=== PATIENT | male | born 1985 | race Caucasian/White ===

== ENCOUNTER 2022-12-04 18:58 | Emergency (ER) | payer MEDICAID, SELFPAY ==
[2022-12-04 19:03] VITALS: BP 160/98; PULSE 67; RESP 18; TEMP 36.4; O2SAT 95; BMI 26.7
--- NOTE | 2022-12-04 19:14 | XRR_ITS ---
PROCEDURE INFORMATION: Exam: XR Chest Exam date and time: 12/04/2022 7:23 PM Age: 37 years old Clinical indication: Pain; Chest pressure; Additional info: Chest pain TECHNIQUE: Imaging protocol: Radiologic exam of the chest. Views: 1 view. COMPARISON: No relevant prior studies available. FINDINGS: Tubes, catheters and devices: EKG monitoring leads overlie the thoracic wall. Lungs: There is no consolidation. Pleural spaces: No pleural effusion or pneumothorax. Heart/Mediastinum: The heart and mediastinum are normal in size. Bones/joints: Unremarkable. XR/XR chest 1V portable [id number] IMPRESSION: No acute findings.
--- NOTE | 2022-12-04 19:15 | W.ED.CHESTPA ---
HPI - Chest Pain General: Chief Complaint: Chest Pain Stated Complaint: Chest Pains Time Seen by Provider: 12/04/22 19:14 History of Present Illness: 37-year-old male patient comes in with left chest wall pain and discomfort that is aggravated with lying on the left side. Patient reports the pain for the last 3 days. Patient reports no falls or injuries. Patient reports he was evaluated at [facility] 2 days ago and was diagnosed with bronchitis and was refilled on his inhaler and told to follow-up as needed. Patient appears nontoxic. Patient appears in moderate to severe pain. Patient's pain is exacerbated with movement. Associated symptoms: Deny dyspnea, fever(s), nausea or vomiting Review of Systems Const: Denies: fever(s) ENMT: Denies: throat pain Card: Reports: chest pain Resp: Denies: dyspnea GI: Denies: nausea or vomiting : Denies: difficulty urinating Musc: Reports: other (Chest wall tenderness) Skin/Breast: Denies: rash Neuro: Denies: numbness in extremities Physical Exam Const: COMMON NORMALS: alert HENMT: COMMON NORMALS: normocephalic HEAD & SCALP: normocephalic MOUTH: Normal oral and palatal mucosa present Neck/C-Spine: COMMON NORMALS: full ROM Chest: CHEST: Yes tenderness (Left anterior chest wall) Resp: COMMON NORMALS: normal respiratory effort Cardio: COMMON NORMALS: regular rate and regular rhythm RATE: regular rate RHYTHM: regular rhythm GI: COMMON NORMALS: Soft to palpation and non-tender PALPATION: Yes Soft to palpation Back/Pelvis: THORACIC SPINE/UPPER BACK: Yes paraspinal muscle tenderness Extremity: COMMON NORMALS: normal to inspection Neuro: SENSORIUM/ORIENTATION: Yes alert Skin: COMMON NORMALS: turgor normal GENERAL SKIN EXAM: turgor normal Course Vital Signs: Vital signs: Vital Signs Temperature 97.6 F 12/04/22 19:03 Pulse Rate 70 12/04/22 19:19 Respiratory Rate 21 H 12/04/22 19:19 Blood Pressure 139/83 12/04/22 19:19 Pulse Oximetry 99 12/04/22 19:19 Oxygen Delivery Me thod Room Air 12/04/22 19:19 MDM - Chest Pain Medical Decision Making 37-year-old male patient comes in today for complaints of left anterior chest wall pain. Patient reports symptoms for the last 3 days. Patient reports difficulty with sleeping. Patient denies any fever. Patient does report occasional cough. Patient has no chronic medical history but some intermittent asthma. Patient has been seen prior at an outside ER and [facility] and was diagnosed with bronchitis. On exam patient's lungs are clear to auscultation. Heart rates regular. Vital signs are normal. Patient is tender to the left anterior chest wall. Abdomen soft nontender. Differential diagnosis includes but not limited to costochondritis, pleurisy, pneumonia, ACS, PE. Patient's Wells criteria for PE is negative. Lab Data 12/04/22 19:23 12/04/22 19: Radiology Impressions Chest X-Ray 12/04/22: IMPRESSION: No acute findings. Laboratory Results WBC 8.5 10^3/uL (4.0-10.0) 12/04/22 19: RBC 5.48 10^6/uL (4.1-5.3) H 12/04/22 19: Hgb 16.9 g/dL (11.7-16.6) H 12/04/22: Hct 48.2 % (42.0-52.0) 12/04/22 19: MCV 88.0 fl (80-94) 12/04/22: MCH 30.8 pg (28.0-34.0) 12/04/22: MCHC 35.1 g/dL (30.0-36.0) 12/04/22 19: RDW 12.2 % (12.1-15.1) 12/04/22: Plt Count 211 10^3/cmm (130-400) 12/04/22 19: MPV 9.8 fL (7.4-10.4) 12/04/22 19: Neut % (Auto) 62.7 % 12/04/22: Lymph % (Auto) 26.8 % 12/04/22 19: Brown % (Auto) 6.7 % 12/04/22 19: Eos % (Auto) 3.1 % 12/04/22 19: Baso % (Auto) 0.5 % 12/04/22: Neut # (Auto) 5.30 10^3/uL (1.8-7.7) 12/04/22 19:23 Lymph # (Auto) 2.3 10^3/uL (0.8-4.8) 12/04/22 19:23 [place] # (Auto) 0.6 10^3/uL (0.2-0.9) 12/04/22 19:23 Eos # (Auto) 0.3 10^3/uL (0.0-0.8) 12/04/22 19: Baso # (Auto) 0.0 10^3/uL (0.0-0.1) 12/04/22 19: Nucleated RBC % (auto) 0 % 12/04/22 19: Nucleated RBCs # 0.0 /100WBC 12/04/22 19: D-Dimer 0.38 ug/mIFEU (0-0.59) 12/04/22 19:23 EKG Data EKG 1: EKG interpretation date: 12/04/22 EKG interpretation time: 19:31 Interpretation: EKG shows sinus rhythm with a regular rate at [address] elevation or ectopy is noted. No prior exam was available for comparison. Computer generated interpretation: Sinus rhythm, incomplete right bundle branch, minimal voltage criteria for LVH consider normal variant, borderline EKG, unconfirmed report. Discharge Plan Discharge Condition: Stable Coding Level of Care Code ED Steam Turbine Assembler for Chg Kylie
[2022-12-04 19:19] VITALS: BP 139/83; PULSE 70; RESP 21; O2SAT 99
--- NOTE | 2022-12-04 19:28 | ECG_ITS ---
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 Measurements Intervals [place] Rate: 61 P: 42 CT: 155 QRS: 9 QRSD: 117 T: 40 QT: 379 QTc: 385 Interpretive Statements SINUS RHYTHM INCOMPLETE RIGHT BUNDLE BRANCH BLOCK [90+ ms QRS DURATION, TERMINAL R IN V1/V2, 40+ ms S IN I/aVL/V4/V5/V6] MINIMAL VOLTAGE CRITERIA FOR LVH, CONSIDER NORMAL VARIANT [MEETS CRITERIA IN ONE OF: R(aVL), S(V1), R(V5), R(V5/V6)+S(V1)] No previous ECG available for comparison Electronically Signed On 12-05-2022 3:49:40 CDT by Karie Gaines M.D. [id number]
[2022-12-04 19:38] LABS: Basophils % 0.5 %; Eosinophils # 0.3 10^3/uL (0.0-0.8); Eosinophils % 3.1 %; Hematocrit 48.2 % (42.0-52.0); Hemoglobin 16.9 g/dL (11.7-16.6); Lymphocytes # 2.3 10^3/uL (0.8-4.8); Lymphocytes % 26.8 %; Mean Corpuscular HGB Conc 35.1 g/dL (30.0-36.0); Mean Corpuscular Hemoglobin 30.8 pg (28.0-34.0); Mean Platelet Volume 9.8 fL (7.4-10.4); Monocytes # 0.6 10^3/uL (0.2-0.9); Monocytes % 6.7 %; Neutrophils % 62.7 %; Nucleated Red Blood Cells % 0 %; Platelet Count 211 10^3/cmm (130-400); Red Blood Count 5.48 10^6/uL (4.1-5.3); Red Cell Distribution Width 12.2 % (12.1-15.1); White Blood Count 8.5 10^3/uL (4.0-10.0)
[2022-12-04 19:44] LABS: D Dimer 0.38 ug/mIFEU (0-0.59)
[2022-12-04 19:51] VITALS: BP 131/74; PULSE 69; RESP 20; O2SAT 98
[2022-12-04 19:56] LABS: Troponin(5th) Baseline 6 ng/L (0-15)
[2022-12-04 20:05] LABS: Alanine Aminotransferase 37 U/L (0-41); Albumin Level 4.9 g/dL (3.5-5.2); Alkaline Phosphatase 86 U/L (40-130); Anion Gap 17.3 (5-19); Aspartate Amino Transferase 30 U/L (0-40); Blood Urea Nitrogen 11 mg/dL (6-20); Carbon Dioxide 23 mmol/L (22-29); Chloride 104 mmol/L (98-107); Globulin 2.2 g/dL (1.3-4.6); Glucose 83 mg/dL (65-115); Lipase 28 U/L (13-60); NT Pro B Type Natriuretic Pept 42 pg/mL (0-125); Osmolality Calculated 289 mOsm/kg (285-295); Potassium 4.3 mmol/L (3.5-5.1); Sodium 140 mmol/L (136-145); Total Bilirubin 0.3 mg/dL (0.15-1.2); Total Protein 7.1 g/dL (6.6-8.7)
[2022-12-04 20:19] VITALS: RESP 18
[2022-12-04] MEDS: ketorolac 30 mg/mL INJ 15 MG IVP (20:19)
[2022-12-04] MEDS: dexamethasone 10 mg/mL INJ IVP (20:19)
[2022-12-04] MEDS: HYDROmorphone 1 mg/mL INJ 1 mL IVP (20:19)
[2022-12-04 20:44] VITALS: BP 153/78; PULSE 64; RESP 13; O2SAT 96
== END 2022-12-04 20:46 | disposition home or self-care (01) ==
PROVIDERS: Emergency Provider Nurse Practitioner Family
DX: R07.9 Chest pain, unspecified (principal)
CPT/HCPCS: 71045; 80053; 83690; 83880; 84484; 85025; 85378; 93005; 96374; 96375; 99285; J1100; J1170; J1885

== ENCOUNTER 2023-03-26 09:57 | Emergency (ER) | payer MEDICAID, SELFPAY ==
[2023-03-26] VITALS (17 sets, daily range): BP systolic 120–151; BP diastolic 73–98; PULSE 63–86; RESP 12–21; TEMP 36.8; O2SAT 93–97; BMI 26.9
--- NOTE | 2023-03-26 10:55 | XRR_ITS ---
PROCEDURE INFORMATION: Exam: XR Chest Exam date and time: 03/26/2023 12:14 PM Age: 37 years old Clinical indication: Shortness of breath; Additional info: SOB TECHNIQUE: Imaging protocol: Radiologic exam of the chest. Views: 1 view. COMPARISON: CR XR chest 1V portable [id number] 12/04/2022 7:23 PM FINDINGS: Lungs: Unremarkable. No consolidation. Pleural spaces: Unremarkable. No pleural effusion. No pneumothorax. Heart/Mediastinum: Unremarkable. No cardiomegaly. Bones/joints: Unremarkable. XR/XR chest 1V portable [id number] IMPRESSION: No acute findings.
--- NOTE | 2023-03-26 10:56 | ECG_ITS ---
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 Measurements Intervals [place] Rate: 85 P: 65 DE: 142 QRS: 28 QRSD: 109 T: 45 QT: 351 QTc: 418 Interpretive Statements SINUS RHYTHM INCOMPLETE RIGHT BUNDLE BRANCH BLOCK [90+ ms QRS DURATION, TERMINAL R IN V1/V2, 40+ ms S IN I/aVL/V4/V5/V6] Compared to ECG 12/04/2022 19:28:57 No significant changes Electronically Signed On 03-26-2023 12:21:05 FIRE EXTINGUISHER SPRINKLER INSPECTOR by Karie Gaines M.D. [id number]
--- NOTE | 2023-03-26 11:09 | ED_ITS ---
HPI - Asthma 2 General: Chief Complaint: Asthma Stated Complaint: chest pains Time Seen by Provider: 03/26/23 10:50 Source: patient Mode of arrival: ambulatory Limitations: no limitations History of Present Illness: 37-year-old male who has a history of as thma states that over the last week he has been having some increasing cough dyspnea along with sharp chest pains. States has been febrile as well. He states has been out of his nebulizers. He states the pain is very sharp in nature worse with coughing and touch rates it a 7 out of 10. No distress here afebrile here. He had no vomiting or diarrhea. Associated symptoms: Reports chest pain and non-productive cough; Deny fever(s) Review of Systems 2 Const: Denies: fever(s), chills, body aches or change in appetite ENMT: Denies: throat pain or dental pain Card: Reports: chest pain Resp: Reports: dyspnea, non-productive cough and wheezing GI: Denies: abdominal pain, nausea, vomiting or diarrhea Musc: Denies: neck pain or back pain Skin/Breast: Denies: rash Neuro: Denies: headache(s) Physical Exam 2 Const: COMMON NORMALS: no acute distress, patient oriented x3 and healthy appearing HENMT: COMMON NORMALS: normocephalic and atraumatic HEAD & SCALP: n ormocephalic and atraumatic Neck/C-Spine: COMMON NORMALS: full ROM and supple Chest: COMMONS NORMALS: normal inspection of the chest OTHER: point tender over left chest wall Resp: COMMON NORMALS: normal respiratory effort, No retractions and No use of accessory muscles AUSCULTATION: wheezes Cardio: COMMON NORMALS: regular rate, regular rhythm and No murmurs present (Cardio) RATE: regular rate RHYTHM: regular rhythm GI: COMMON NORMALS: Normal to inspection, nondistended, normoactive bowel sounds present, Soft to palpation, non-tender and no masses PALPATION: Yes Soft to palpation Extremity: COMMON NORMALS: normal to inspection and full ROM Neuro: COMMON NORMALS: patient oriented x3, moves all extremities and no focal motor deficits Psych: COMMON NORMALS: mental status grossly normal, Normal thought process present and cooperative THOUGHT PROCESS: Normal thought process present Skin: COMMON NORMALS: no rashes or lesions noted and no wounds GENERAL SKIN EXAM: no rashes or lesions noted Course 2 Vital Signs: Vital signs: Vital Signs Temperature 98.3 F 03/26/23 10:07 Pulse Rate 70 03/26/23 11:55 Respiratory Rate 16 03/26/23 11:55 Blood Pressure 130/78 03/26/23 11:55 Pulse Oximetry 95 03/26/23 11:55 Oxygen Delivery Me thod Room Air 03/26/23 11:50 MDM - Asthma Medical Decision Making Patient presents here with shortness of breath likely asthma exacerbation he has been out of his albuterol nebs we will Prescribe him albuterol along with steroids. He does have chest pains likely chest wall pain no signs of acute coronary event x-ray here is normal. Medical Records I reviewed the patient's medical records. Lab Data I reviewed the patient's lab results. 03/26/23 11:04 03/26/23 11:04 Radiology Impressions Chest X-Ray 03/26/23 10:55 IMPRESSION: No acute findings. Laboratory Results WBC 7.72 10^3/uL (3.29-11.43) 03/26/23 11:04 RBC 4.97 10^6/uL (3.85-5.65) 03/26/23 11:04 Hgb 16.10 g/dL (11.27-16.99) 03/26/23 11:04 Hct 44.0 % (37-53) 03/26/23 11:04 MCV 88.5 fl (82-101) 03/26/23 11:04 MCH 32.4 pg (27-33) 03/26/23 11:04 MCHC 36.6 g/dL (30-55) 03/26/23 11:04 RDW 11.7 % (12.1-15.1) L 03/26/23 11:04 Plt Count 236 10^3/cmm (157-399) 03/26/23 11:04 MPV 9.9 fL (7.4-10.4) 03/26/23 11:04 Neut % (Auto) 60.2 % 03/26/23 11:04 Lymph % (Auto) 29.0 % 03/26/23 11:04 [place] % (Auto) 7.5 % 03/26/23 11:04 Eos % (Auto) 2.6 % 03/26/23 11:04 Baso % (Auto) 0.4 % 03/26/23 11:04 Neut # (Auto) 4.65 10^3/uL (1.8-7.7) 03/26/23 11:04 Lymph # (Auto) 2.2 10^3/uL (0.8-4.8) 03/26/23 11:04 [place] # (Auto) 0.6 10^3/uL (0.2-0.9) 03/26/23 11:04 Eos # (Auto) 0.2 10^3/uL (0.0-0.8) 03/26/23 11:04 Baso # (Auto) 0.0 10^3/uL (0.0-0.1) 03/26/23 11:04 Nucleated RBC % (auto) 0 % 03/26/23 11:04 Nucleated RBCs # 0.0 /100WBC 03/26/23 11:04 Sodium 136 mmol/L (136-145) 03/26/23 11:04 Potassium 4.2 mmol/L (3.5-5.1) 03/26/23 11:04 Chloride 103 mmol/L (98-107) 03/26/23 11:04 Carbon Dioxide 23 mmol/L (22-29) 03/26/23 11:04 Anion Gap 14.2 (5-19) 03/26/23 11:04 BUN 7 mg/dL (6-20) 03/26/23 11:04 Creatinine 0.6 mg/dL (0.7-1.2) L 03/26/23 11:04 GFR Calculation 153.3 mL/min (90-130) H 03/26/23 11:04 Glucose 97 mg/dL (65-115) 03/26/23 11:04 Calculated Osmolality 280 mOsm/kg (285-295) L 03/26/23 11:04 Calcium 10.2 mg/dL (8.5-10.5) 03/26/23 11:04 Total Bilirubin 0.3 mg/dL (0.15-1.2) 03/26/23 11:04 AST 24 U/L (0-40) 03/26/23 11:04 ALT 38 U/L (0-41) 03/26/23 11:04 Alkaline Phosphatase 70 U/L (40-130) 03/26/23 11:04 Troponin T Baseline < 6 ng/L (0-15) 03/26/23 11:04 Total Protein 7.7 g/dL (6.6-8.7) 03/26/23 11:04 Albumin 4.8 g/dL (3.5-5.2) 03/26/23 11:04 Globulin 2.9 g/dL (1.3-4.6) 03/26/23 11:04 Influenza Type A Ag negative (Negative) 03/26/23 11:22 Influenza Type B Ag negative (Negative) 03/26/23 11:22 SARS-CoV-2 Ag (Rapid) negative (Negative) 03/26/23 11:22 All radiology interpretation(s) finalized by discharge Discharge Plan Discharge Patient Disposition: Home Clinical Impression: Asthma with acute exacerbation, Atypical chest pain Condition: Stable Prescriptions: New albuterol sulfate 2.5 mg /3 mL (0.083 %) solution for nebulization 2.5 mg INHALATION Q4H PRN (Reason: shortness of breath or wheezing) Qty: 90 0RF hydrocodone-acetaminophen 5-325 mg tablet 1 tab PO Q6H PRN (Reason: pain) Qty: 8 0RF prednisone 50 mg tablet 50 mg PO DAILY Qty: 5 0RF Naprosyn 500 mg tablet 500 mg PO BID PRN (Reason: pain) Qty: 20 0RF No Action diclofenac sodium 75 mg tablet,delayed release (DR/EC) 75 mg PO BID Qty: 20 0RF hydrocodone-acetaminophen 5-325 mg tablet 1 tab PO Q8H PRN (Reason: pain (scale score 7-10)) Qty: 7 0RF Discharge Orders: Discharge ED (Routine); Ordered 03/26/23 Ordered By: Nahid Tucker Discharge Diet: Advance as tolerated Discharge Activity: Resume usual activity Patient Instructions: Asthma (ED), Chest Wall Pain (ED) Coding Level of Care Code ED Packing And Wrapping Supervisor for Josafat Espinal
[2023-03-26] MEDS: ondansetron 2 mg/ML SDV 2 mL 4 MG IVP (11:11)
[2023-03-26] MEDS: methylPREDNISolone sod succ 125 mg/2 mL INJ IV (11:11)
[2023-03-26] MEDS: morphine 4 mg/mL SDV 1 mL IVP (11:11)
[2023-03-26 11:19] LABS: Basophils % 0.4 %; Eosinophils # 0.2 10^3/uL (0.0-0.8); Eosinophils % 2.6 %; Lymphocytes # 2.2 10^3/uL (0.8-4.8); Mean Corpuscular HGB Conc 36.6 g/dL (30-55); Mean Corpuscular Hemoglobin 32.4 pg (27-33); Mean Corpuscular Volume 88.5 fl (82-101); Mean Platelet Volume 9.9 fL (7.4-10.4); Monocytes # 0.6 10^3/uL (0.2-0.9); Monocytes % 7.5 %; Neutrophils # 4.65 10^3/uL (1.8-7.7); Neutrophils % 60.2 %; Nucleated Red Blood Cells % 0 %; Platelet Count 236 10^3/cmm (157-399); Red Blood Count 4.97 10^6/uL (3.85-5.65); Red Cell Distribution Width 11.7 % (12.1-15.1); White Blood Count 7.72 10^3/uL (3.29-11.43)
[2023-03-26 11:28] LABS: Alanine Aminotransferase 38 U/L (0-41); Albumin Level 4.8 g/dL (3.5-5.2); Alkaline Phosphatase 70 U/L (40-130); Anion Gap 14.2 (5-19); Aspartate Amino Transferase 24 U/L (0-40); Blood Urea Nitrogen 7 mg/dL (6-20); Calcium 10.2 mg/dL (8.5-10.5); Carbon Dioxide 23 mmol/L (22-29); Chloride 103 mmol/L (98-107); Globulin 2.9 g/dL (1.3-4.6); Glomerular Filtration Rate 153.3 mL/min (90-130); Glucose 97 mg/dL (65-115); Osmolality Calculated 280 mOsm/kg (285-295); Potassium 4.2 mmol/L (3.5-5.1); Sodium 136 mmol/L (136-145); Total Bilirubin 0.3 mg/dL (0.15-1.2); Total Protein 7.7 g/dL (6.6-8.7)
[2023-03-26 11:31] LABS: Troponin(5th) Baseline < 6 ng/L (0-15)
[2023-03-26] MEDS: ipratropium-albuterol 3 mL Neb INHALATION (11:37)
[2023-03-26 11:54] LABS: Influenza A by IFA negative (Negative); Influenza B by IFA negative (Negative); SARS Covid-2 Antigen negative (Negative)
== END 2023-03-26 12:15 | disposition home or self-care (01) ==
PROVIDERS: Emergency Provider Emergency Medicine
DX: J45.901 Unspecified asthma with (acute) exacerbation (principal); R07.89 Other chest pain; Z11.52 Encounter for screening for COVID-19
CPT/HCPCS: 71045; 80053; 84484; 85025; 87426; 87804; 93005; 94640; 96374; 96375; 99285; J2270; J2405; J2930

== ENCOUNTER 2023-12-13 21:57 | Emergency (ER) | payer MEDICAID, SELFPAY ==
--- NOTE | 2023-12-13 22:01 | ECG_ITS ---
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 Measurements Intervals [place] Rate: 77 P: 51 DE: 156 QRS: 11 QRSD: 118 T: 51 QT: 378 QTc: 429 Interpretive Statements SINUS RHYTHM POSSIBLE LEFT ATRIAL ENLARGEMENT [-0.1mV P-WAVE IN V1/V2] INCOMPLETE RIGHT BUNDLE BRANCH BLOCK [90+ ms QRS DURATION, TERMINAL R IN V1/V2, 40+ ms S IN I/aVL/V4/V5/V6] Compared to ECG 03/26/2023 10:05:11 No significant changes Electronically Signed On 12-14-2023 11:29:04 CDT by Chapito Khan M.D. [id number]
--- NOTE | 2023-12-13 22:08 | XRR_ITS ---
PROCEDURE INFORMATION: Exam: XR Chest Exam date and time: 12/13/2023 11:06 PM Age: 38 years old Clinical indication: Chest wall pain; Additional info: Chest pain TECHNIQUE: Imaging protocol: Radiologic exam of the chest. Views: 1 view. COMPARISON: CR XR chest 1V portable [id number] 03/26/2023 12:14 PM FINDINGS: Lungs: Unremarkable. No consolidation. Pleural spaces: Unremarkable. No pleural effusion. No pneumothorax. Heart/Mediastinum: Unremarkable. No cardiomegaly. Bones/joints: Unremarkable. XR/XR chest 1V portable [id number] IMPRESSION: No acute findings.
[2023-12-13 22:09] VITALS: BP 154/105; PULSE 80; RESP 20; TEMP 36.7; O2SAT 98; BMI 28.6
[2023-12-13 22:45] LABS: Basophils % 0.4 %; Eosinophils # 0.2 10^3/uL (0.0-0.8); Eosinophils % 1.9 %; Hematocrit 49.4 % (37-53); Lymphocytes # 3.3 10^3/uL (0.8-4.8); Lymphocytes % 42.5 %; Mean Corpuscular HGB Conc 35.6 g/dL (30-55); Mean Corpuscular Hemoglobin 31.5 pg (27-33); Mean Corpuscular Volume 88.5 fl (82-101); Mean Platelet Volume 9.6 fL (7.4-10.4); Monocytes # 0.6 10^3/uL (0.2-0.9); Monocytes % 7.9 %; Neutrophils # 3.69 10^3/uL (1.8-7.7); Neutrophils % 47.2 %; Nucleated Red Blood Cells % 0 %; Platelet Count 233 10^3/cmm (157-399); Red Blood Count 5.58 10^6/uL (3.85-5.65); Red Cell Distribution Width 11.9 % (12.1-15.1); White Blood Count 7.83 10^3/uL (3.29-11.43)
--- NOTE | 2023-12-13 22:46 | ED_ITS ---
HPI - Chest Pain 2 General: Chief Complaint: Chest Pain Stated Complaint: chest pressure SOB Time Seen by Provider: 12/13/23 22:41 History of Present Illness: Patient resents to the ER with complaints of left-sided chest pain that radiates to his back and down his left arm. This pain comes and goes with no known cause. Patient has had this off and on for approximately 6 months but is progressively getting worse. Tonight is the worst pain that it has been. 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 Patient does appear in mild distress and pain. Vital signs are stable. Related Data Previous Rx's Medication Instructions Recorded diclofenac sodium 75 mg 75 mg PO BID #20 tabs 12/04/22 tablet,delayed release hydrocodone 5 mg-acetaminophen 325 1 tab PO Q8H PRN pain (scale score 12/04/22 mg tablet 7-10) #7 tabs albuterol sulfate 2.5 mg/3 mL 2.5 mg (3 mL) inhalation Q4H PRN 03/26/23 (0.083 %) solution for nebulization shortness of breath or wheezing #90 mL hydrocodone 5 mg-acetaminophen 325 1 tab PO Q6H PRN pain #8 tabs 03/26/23 mg tablet naproxen 500 mg tablet (Naprosyn) 500 mg PO BID PRN pain #20 tabs 03/26/23 prednisone 50 mg tablet 50 mg PO DAILY #5 tabs 03/26/23 meloxicam 7.5 mg tablet 7.5 mg PO .Twice daily #14 tabs 12/14/23 Allergies Allergy/AdvReac Type Severity Reaction Status Date / Time sulfamethoxazole Allergy ALGY-Hives Verified 03/26/23 10:07 [From Bactrim] trimethoprim [From Bactrim] Allergy ALGY-Hives Verified 03/26/23 10:07 Review of Systems 2 General: Reports: 10 or more systems reviewed and unremarkable except in HPI and below Physical Exam 2 Const: COMMON NORMALS: no acute distress, average body habitus, patient oriented x3, no limitations, healthy appearing, alert and well nourished HENMT: COMMON NORMALS: normocephalic, atraumatic, hearing grossly normal bilaterally, external ears normal, Normal external nose present and moist oral mucous membranes HEAD & SCALP: normocephalic and atraumatic NOSE: Normal external nose present EXTERNAL EAR: Yes external ears normal Neck/C-Spine: COMMON NORMALS: no JVD Chest: COMMONS NORMALS: normal inspection of the chest; negative for normal palpation of entire chest wall (Palpation of left anterior chest wall reproduces pain) Resp: COMMON NORMALS: normal respiratory effort, No retractions, No use of accessory muscles and clear to auscultation bilaterally AUSCULTATION: clear to auscultation bilaterally Cardio: COMMON NORMALS: no JVD, regular rate, regular rhythm, S1 normal heart sound present, S2 normal heart sound present, No gallops present (Cardio), No clicks present (Cardio), No murmurs present (Cardio) and No rub (Cardio) R ATE: regular rate RHYTHM: regular rhythm HEART SOUNDS: S1 normal heart sound present and S2 normal heart sound present GI: COMMON NORMALS: Normal to inspection, nondistended, normoactive bowel sounds present, Soft to palpation, non-tender, No hepatosplenomegaly present and no masses PALPATION: Yes Soft to palpation and Yes No hepatosplenomegaly present Neuro: COMMON NORMALS: patient oriented x3 SENSORIUM/ORIENTATION: Yes alert Course 2 Vital Signs: Vital signs: Vital Signs Temperature 98.0 F 12/13/23 22:09 Pulse Rate 58 L 12/14/23 00:57 Respiratory Rate 16 12/14/23 00:57 Blood Pressure 110/80 12/14/23 00:57 Pulse Oximetry 96 12/14/23 00:57 Oxygen Delivery Me thod Room Air 12/14/23 00:57 MDM - Chest Pain Medical Decision Making Patient was worked up with lab work including serial troponins, chest x-ray, EKG, all of which were essentially benign. Patient was given Toradol and morphine for his chest wall pain. Which was reproducible with palpation. Patient will be referred back to his family practice doctor for further evaluation and treatment. We will prescribe him meloxicam as needed. Differential Diagnosis Unlikely acute massive pulmonary embolism, acute respiratory failure, acute myocardial infarction, cardiac arrest or sudden cardiac Medical Records I reviewed the patient's medical records. Lab Data I reviewed the patient's lab results. 12/13/23 22:35 12/13/23 22:35 Radiology Impressions Chest X-Ray 12/13/23 22:08 IMPRESSION: No acute findings. Laboratory Results WBC 7.83 10^3/uL (3.29-11.43) 12/13/23: RBC 5.58 10^6/uL (3.85-5.65) 12/13/23 22: Hgb 17.60 g/dL (11.27-16.99) H 12/13/23 22: Hct 49.4 % (37-53) 12/13/23 22: MCV 88.5 fl (82-101) 12/13/23 22: MCH 31.5 pg (27-33) 12/13/23 22: MCHC 35.6 g/dL (30-55) 12/13/23: RDW 11.9 % (12.1-15.1) L 12/13/23: Plt Count 233 10^3/cmm (157-399) 12/13/23: MPV 9.6 fL (7.4-10.4) 12/13/23 22:35 Neut % (Auto) 47.2 % 12/13/23 22:35 Lymph % (Auto) 42.5 % 12/13/23 22:35 [place] % (Auto) 7.9 % 12/13/23 22: Eos % (Auto) 1.9 % 12/13/23: Baso % (Auto) 0.4 % 12/13/23: Neut # (Auto) 3.69 10^3/uL (1.8-7.7) 12/13/23: Lymph # (Auto) 3.3 10^3/uL (0.8-4.8) 12/13/23 22:35 [place] # (Auto) 0.6 10^3/uL (0.2-0.9) 12/13/23 22: Eos # (Auto) 0.2 10^3/uL (0.0-0.8) 12/13/23: Baso # (Auto) 0.0 10^3/uL (0.0-0.1) 12/13/23: Nucleated RBC % (auto) 0 % 12/13/23: Nucleated RBCs # 0.0 /100WBC 12/13/23 22:35 Sodium 138 mmol/L (136-145) 12/13/23 22:35 Potassium 4.0 mmol/L (3.5-5.1) 12/13/23 22:35 Chloride 103 mmol/L (98-107) 12/13/23 22:35 Carbon Dioxide 20 mmol/L (22-29) L 12/13/23 22:35 Anion Gap 19.0 (5-19) 12/13/23 22:35 BUN 12 mg/dL (6-20) 12/13/23 22:35 Creatinine 0.8 mg/dL (0.7-1.2) 12/13/23 22:35 GFR Calculation 109.4 mL/min (90-130) 12/13/23 22:35 Glucose 100 mg/dL (65-115) 12/13/23 22:35 Calculated Osmolality 286 mOsm/kg (285-295) 12/13/23 22:35 Calcium 10.0 mg/dL (8.5-10.5) 12/13/23 22:35 Total Bilirubin 0.6 mg/dL (0.15-1.2) 12/13/23 22:35 AST 42 U/L (0-40) H 12/13/23 22:35 ALT 91 U/L (0-41) H 12/13/23 22:35 Alkaline Phosphatase 63 U/L (40-130) 12/13/23 22:35 Troponin T Baseline < 6 ng/L (0-15) 12/13/23 22:35 Troponin T 120 Minute 6.00 ng/L (0-15) 12/14/23 00:25 Delta Troponin T 0.27012 ABS# (0-10) 12/14/23 00:25 Total Protein 8.1 g/dL (6.6-8.7) 12/13/23 22:35 Albumin 5.3 g/dL (3.5-5.2) H 12/13/23 22:35 Globulin 2.8 g/dL (1.3-4.6) 12/13/23 22:35 All radiology interpretation(s) finalized by discharge Discharge Plan Discharge Patient Disposition: Home Clinical Impression: Chest wall pain Condition: Stable Prescriptions: New meloxicam 7.5 mg tablet 7.5 mg PO .Twice daily Qty: 14 0RF No Action diclofenac sodium 75 mg tablet,delayed release (DR/EC) 75 mg PO BID Qty: 20 0RF hydrocodone-acetaminophen 5-325 mg tablet 1 tab PO Q8H PRN (Reason: pain (scale score 7-10)) Qty: 7 0RF albuterol sulfate 2.5 mg /3 mL (0.083 %) solution for nebulization 2.5 mg INHALATION Q4H PRN (Reason: shortness of breath or wheezing) Qty: 90 0RF hydrocodone-acetaminophen 5-325 mg tablet 1 tab PO Q6H PRN (Reason: pain) Qty: 8 0RF prednisone 50 mg tablet 50 mg PO DAILY Qty: 5 0RF Naprosyn 500 mg tablet 500 mg PO BID PRN (Reason: pain) Qty: 20 0RF Discharge Orders: Discharge ED (Routine); Ordered 12/14/23 Ordered By: Levon Murray Patient Instructions: Chest Pain - Chest Wall Activity Restrictions/Additional Instructions: Your evaluation ER did not reveal any acute cardiac cause of your chest pain. Your chest pain is felt to be a chest wall pain and noncardiac in nature. You have been prescribed meloxicam to take as needed for pain control. Please follow-up with your family practice physician for further evaluation and testing. Coding Level of Care Code ED Platen Grinder for Josafat Espinal
[2023-12-13 23:01] LABS: Troponin(5th) Baseline < 6 ng/L (0-15)
[2023-12-13] MEDS: ketorolac 30 mg/mL INJ IVP (23:06)
[2023-12-13 23:10] LABS: Alanine Aminotransferase 91 U/L (0-41); Albumin Level 5.3 g/dL (3.5-5.2); Alkaline Phosphatase 63 U/L (40-130); Aspartate Amino Transferase 42 U/L (0-40); Blood Urea Nitrogen 12 mg/dL (6-20); Carbon Dioxide 20 mmol/L (22-29); Chloride 103 mmol/L (98-107); Creatinine Clr Calc Pharmacy 166.5611; Globulin 2.8 g/dL (1.3-4.6); Glomerular Filtration Rate 109.4 mL/min (90-130); Glucose 100 mg/dL (65-115); Osmolality Calculated 286 mOsm/kg (285-295); Sodium 138 mmol/L (136-145); Total Bilirubin 0.6 mg/dL (0.15-1.2); Total Protein 8.1 g/dL (6.6-8.7)
[2023-12-14 00:16] VITALS: PULSE 82; RESP 18; O2SAT 95
--- NOTE | 2023-12-14 00:22 | ECG_ITS ---
[facility] Test Date: 2023-12-14 Pat Name: Ryan Mejias Department: Room: Gender: Male News Specialist: : 1985 Requested By: Levon Murray Order Number: [id number] Mariely MD: Chapito Khan M.D. Measurements Intervals [place] Rate: 67 P: 47 SD: 160 QRS: 14 QRSD: 121 T: 34 QT: 395 QTc: 419 Interpretive Statements SINUS RHYTHM WITH SINUS ARRHYTHMIA POSSIBLE RIGHT VENTRICULAR CONDUCTION DELAY [RSR (QR) IN V1/V2] Compared to ECG 12/13/2023 22:01:04 Incomplete right bundle-branch block no longer present Electronically Signed On 12-14-2023 13:04:39 CDT by Chapito Khan M.D. [id number]
[2023-12-14 00:44] VITALS: RESP 20; O2SAT 97
[2023-12-14] MEDS: morphine 4 mg/mL SDV 1 mL IVP (00:44)
[2023-12-14 00:57] VITALS: BP 110/80; PULSE 58; RESP 16; O2SAT 96
[2023-12-14 01:02] LABS: Troponin 5 2HR Delta 0.00001 ABS# (0-10)
[2023-12-14 01:14] VITALS: PULSE 63; RESP 20; O2SAT 98
[2023-12-14 01:15] VITALS: PULSE 57; RESP 22; O2SAT 97
== END 2023-12-14 01:23 | disposition home or self-care (01) ==
PROVIDERS: Emergency Provider Emergency Medicine
DX: R07.89 Other chest pain (principal)
CPT/HCPCS: 36415; 71045; 80053; 84484; 85025; 93005; 96374; 96375; 99285; J1885; J2270

== ENCOUNTER 2023-12-17 09:09 | Emergency (ER) | payer MEDICAID, SELFPAY ==
--- NOTE | 2023-12-17 09:18 | ECG_ITS ---
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 Measurements Intervals [place] Rate: 62 P: 44 [place]: 155 QRS: 9 QRSD: 114 T: 31 QT: 365 QTc: 373 Interpretive Statements SINUS RHYTHM INCOMPLETE RIGHT BUNDLE BRANCH BLOCK [90+ ms QRS DURATION, TERMINAL R IN V1/V2, 40+ ms S IN I/aVL/V4/V5/V6] INTERPRETATION BASED ON A DEFAULT AGE OF 40 YEARS Compared to ECG 12/14/2023 00:22:40 Incomplete right bundle-branch block now present Sinus arrhythmia no longer present Electronically Signed On 12-17-2023 22:53:59 CDT by Ness Oviedo M.D. [id number]
[2023-12-17 09:20] VITALS: BP 158/84; PULSE 69; O2SAT 97
--- NOTE | 2023-12-17 09:31 | XR_ITS ---
WS: [id number] Exam: XR chest 1V portable [id number] Date/Time of Exam: 12/17/2023 9:31 AM Reason For Exam: chest pain Comparison 12/13/2023. The lungs are fully inflated and clear. Normal cardiomediastinal silhouette and regional bony element s. No pleural effusions. XR/XR chest 1V portable [id number] IMPRESSION: 1. No acute cardiopulmonary finding.
[2023-12-17 09:44] LABS: Basophils % 0.5 %; Eosinophils # 0.1 10^3/uL (0.0-0.8); Eosinophils % 2.1 %; Hematocrit 46.4 % (37-53); Lymphocytes # 2.3 10^3/uL (0.8-4.8); Mean Corpuscular HGB Conc 34.7 g/dL (30-55); Mean Corpuscular Hemoglobin 31.3 pg (27-33); Mean Corpuscular Volume 90.3 fl (82-101); Mean Platelet Volume 9.9 fL (7.4-10.4); Monocytes # 0.5 10^3/uL (0.2-0.9); Monocytes % 7.6 %; Neutrophils # 3.39 10^3/uL (1.8-7.7); Neutrophils % 53.6 %; Nucleated Red Blood Cells % 0 %; Platelet Count 213 10^3/cmm (157-399); Red Blood Count 5.14 10^6/uL (3.85-5.65); Red Cell Distribution Width 11.8 % (12.1-15.1); White Blood Count 6.31 10^3/uL (3.29-11.43)
[2023-12-17] MEDS: ondansetron 2 mg/ML SDV 2 mL 4 MG IVP (09:53)
[2023-12-17] MEDS: ketorolac 30 mg/mL INJ IVP (09:54)
[2023-12-17] MEDS: morphine 4 mg/mL SDV 1 mL IVP (09:55)
[2023-12-17 10:00] VITALS: BP 119/78; PULSE 79; O2SAT 98
[2023-12-17 10:00] LABS: D Dimer <= 0.27 ug/mLFEU (0-0.59)
--- NOTE | 2023-12-17 10:00 | ED_ITS ---
Documented by User: ANT Ford 12/17/23 10:55 HPI - General Adult 2 General: Chief complaint: Chest Pain Stated complaint: sob & cp Time Seen by Provider: 12/17/23 09:11 Source: patient Mode of arrival: ambulatory Limitations: no limitations History of Present Illness: Patient is a nice 38-year-old male who presents to ED today with complaint of left-sided chest, back, left arm pain/numbness. He states symptoms have been progressively worsening over the past several months. He has reportedly had multiple medical evaluations none of which were revealing in etiology. He states he has been treated with anti-inflammatories without much relief. 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 He is reporting numbness and tingling to the left arm-this will sometimes improve with changes in position of the arm. Patient feels like symptoms worsen with overhead head activities. He has not noticed any paleness or coolness to the arm. No edema. He is not having significant neck discomfort. Patient states he has been worked up multiple times by providers for cardiac etiology given the left-sided chest pain. Onset (ago): month(s) Location: chest, left and upper extremity Severity: severe Severity scale (1-10): 10 Quality: burning Pain Consistency: constant Relieving factors: none Exacerbating factors: other (provocative maneuvers) Associated symptoms: Reports chest pain; Deny dyspnea, headache(s), malaise, nausea, rash, palpitations, syncope or vomiting Treatments prior to arrival: none Related Data Previous Rx's Medication Instructions Recorded diclofenac sodium 75 mg 75 mg PO BID #20 tabs 12/04/22 tablet,delayed release albuterol sulfate 2.5 mg/3 mL 2.5 mg (3 mL) inhalation Q4H PRN 03/26/23 (0.083 %) solution for nebulization shortness of breath or wheezing #90 mL naproxen 500 mg tablet (Naprosyn) 500 mg PO BID PRN pain #20 tabs 03/26/23 meloxicam 7.5 mg tablet 7.5 mg PO .Twice daily #14 tabs 12/14/23 hydrocodone 5 mg-acetaminophen 325 1 tab PO Q6H PRN pain #14 tabs 12/17/23 mg tablet prednisone 10 mg tablet 10 mg PO DAILY 7 days #27 tabs 12/17/23 pregabalin 75 mg capsule (Lyrica) 75 mg PO BID #90 caps 12/17/23 Allergies Allergy/AdvReac Type Severity Reaction Status Date / Time sulfamethoxazole Allergy ALGY-Hives Verified 03/26/23 10:07 [From Bactrim] trimethoprim [From Bactrim] Allergy ALGY-Hives Verified 03/26/23 10:07 Review of Systems 2 Const: Denies: fever(s), chills, body aches, fatigue or malaise Eyes: Denies: change in vision or blurry vision Card: Reports: chest pain; Denies: palpitations, irregular heart rhythm, edema, swelling of feet/ankles, lightheadedness, syncope, pre-syncope, dyspnea on exertion, orthopnea, leg pain with exertion or acrocyanosis Resp: Reports: pain on inspiration; Denies: dyspnea, productive cough, wheezing, hemoptysis or chest congestion GI: Denies: abdominal pain, nausea, vomiting, heartburn or diarrhea : Denies: flank pain, difficulty urinating or dysuria Musc: Reports: joint pain (L shoulder); Denies: neck pain, back pain, extremity pain or extremity swelling Skin/Breast: Denies: rash Neuro: Reports: numbness in extremities and weakness in extremities; Denies: headache(s) or sensory changes Physical Exam 2 Const: COMMON NORMALS: average body habitus, patient oriented x3, no limitations, healthy appearing, alert and well nourished GENERAL APPEARANCE: in distress (appears slightly uncomfortable secondary to pain) HENMT: COMMON NORMALS: normocephalic and atraumatic HEAD & SCALP: normal to inspection, normocephalic and atraumatic Neck/C-Spine: COMMON NORMALS: full ROM, no lymphadenopathy, supple and no meningeal signs GENERAL: Yes normal visual inspection CERVICAL SPINE: Yes cervical ROM normal, No Cervical spine tenderness and No step off deformity Chest: COMMONS NORMALS: normal inspection of the chest Chest images (male): 1. TTP L anterior chest wall and throughout L shoulder Resp: COMMON NORMALS: normal respiratory effort and clear to auscultation bilaterally AUSCULTATION: clear to auscultation bilaterally Cardio: COMMON NORMALS: regular rate and regular rhythm RATE: regular rate RHYTHM: regular rhythm Back/Pelvis: COMMON NORMALS: thoracic and lumbar spine normal to inspection, no thoracic nor lumbar tenderness and thoraco-lumbar ROM normal Extremity: COMMON NORMALS: normal to inspection, capillary refill normal, no joint enlargement and no clubbing, cyanosis or edema GENERAL: Yes normal exam except as noted LEFT UPPER EXTREMITY: Yes shoulder joint Left shoulder joint: Yes palpation (TTP throughout L shoulder), Yes ROM (normal but elicits pain) and Yes neurovascular exam (normal) OTHER: radial pulse normal in L UE and does not diminish with overhead lifting of the arm; nothing to suggest venous compression Neuro: COMMON NORMALS: patient oriented x3, moves all extremities and no focal motor deficits SENSORIUM/ORIENTATION: Yes alert MENINGEAL SIGNS: Yes no meningeal signs SENSORY EXAM: Yes other (reporting decreased sensation to L UE) MOTOR EXAM: 5/5 motor strength present throughout Skin: COMMON NORMALS: no rashes or lesions noted GENERAL SKIN EXAM: no rashes or lesions noted Course 2 Vital Signs: Vital signs: Vital Signs Temperature 97.7 F 12/17/23 10:01 Pulse Rate 69 12/17/23 10:59 Blood Pressure 110/78 12/17/23 10:59 Pulse Oximetry 96 12/17/23 10:59 Oxygen Delivery Me thod Room Air 12/17/23 10:59 [facility] - General Adult Medical Decision Making Do not feel symptoms are secondary to any type of cardiac or pulmonary in etiology. Workup here is benign. At this point I suspect a neurogenic thoracic outlet syndrome. Nothing to suggest arterial or venous compression. Patient is having progressively worsening symptoms to the point where it is starting to interfere with activity at home/work. Other etiologies include cervical radiculopathy, shoulder etiology such as nerve impingement/rotator cuff injury, musculoskeletal pain. Will try and get patient set up with an MRI cervical/thoracic as an outpatient have him follow-up with neurology for further evaluation. He does have follow-up with primary care next week. Will place him on steroids and Lyrica. He is requesting pain medications that he can use sparingly to help at night so he can sleep. Case discussed with Dr. Grady who agrees with care plan for patient. Lab Data 12/17/23 09:38 12/17/23 09:38 Radiology Impressions Chest X-Ray 12/17/23 09:31 IMPRESSION: 1. No acute cardiopulmonary finding. Laboratory Results WBC 6.31 10^3/uL (3.29-11.43) 12/17/23 09:38 RBC 5.14 10^6/uL (3.85-5.65) 12/17/23 09:38 Hgb 16.10 g/dL (11.27-16.99) 12/17/23 09:38 Hct 46.4 % (37-53) 12/17/23 09:38 MCV 90.3 fl (82-101) 12/17/23 09:38 MCH 31.3 pg (27-33) 12/17/23 09:38 MCHC 34.7 g/dL (30-55) 12/17/23 09:38 RDW 11.8 % (12.1-15.1) L 12/17/23 09:38 Plt Count 213 10^3/cmm (157-399) 12/17/23 09:38 MPV 9.9 fL (7.4-10.4) 12/17/23 09:38 Neut % (Auto) 53.6 % 12/17/23 09:38 Lymph % (Auto) 36.0 % 12/17/23 09:38 Woodson % (Auto) 7.6 % 12/17/23 09:38 Eos % (Auto) 2.1 % 12/17/23 09:38 Baso % (Auto) 0.5 % 12/17/23 09:38 Neut # (Auto) 3.39 10^3/uL (1.8-7.7) 12/17/23 09:38 Lymph # (Auto) 2.3 10^3/uL (0.8-4.8) 12/17/23 09:38 Woodson # (Auto) 0.5 10^3/uL (0.2-0.9) 12/17/23 09:38 Eos # (Auto) 0.1 10^3/uL (0.0-0.8) 12/17/23 09:38 Baso # (Auto) 0.0 10^3/uL (0.0-0.1) 12/17/23 09:38 Nucleated RBC % (auto) 0 % 12/17/23 09:38 Nucleated RBCs # 0.0 /100WBC 12/17/23 09:38 D-Dimer <= 0.27 ug/mLFEU (0-0.59) 12/17/23 09:38 Sodium 139 mmol/L (136-145) 12/17/23 09:38 Potassium 4.2 mmol/L (3.5-5.1) 12/17/23 09:38 Chloride 105 mmol/L (98-107) 12/17/23 09:38 Carbon Dioxide 19 mmol/L (22-29) L 12/17/23 09:38 Anion Gap 19.2 (5-19) H 12/17/23 09:38 BUN 8 mg/dL (6-20) 12/17/23 09:38 Creatinine 0.8 mg/dL (0.7-1.2) 12/17/23 09:38 GFR Calculation 109.4 mL/min (90-130) 12/17/23 09:38 Glucose 104 mg/dL (65-115) 12/17/23 09:38 Calculated Osmolality 287 mOsm/kg (285-295) 12/17/23 09:38 Calcium 9.5 mg/dL (8.5-10.5) 12/17/23 09:38 Total Bilirubin 0.3 mg/dL (0.15-1.2) 12/17/23 09:38 AST 33 U/L (0-40) 12/17/23 09:38 ALT 72 U/L (0-41) H 12/17/23 09:38 Alkaline Phosphatase 59 U/L (40-130) 12/17/23 09:38 Troponin T Baseline < 6 ng/L (0-15) 12/17/23 09:38 Total Protein 7.3 g/dL (6.6-8.7) 12/17/23 09:38 Albumin 4.9 g/dL (3.5-5.2) 12/17/23 09:38 Globulin 2.4 g/dL (1.3-4.6) 12/17/23 09:38 All radiology interpretation(s) finalized by discharge Discharge Plan Discharge Patient Disposition: Home Clinical Impression: Neurogenic thoracic outlet syndrome of left brachial plexus Condition: Stable Prescriptions: New Lyrica 75 mg capsule 75 mg PO BID Qty: 90 0RF Rx Instructions: Start 1 tab BID. May increase to 2 tabs BID after a week. prednisone 10 mg tablet 10 mg PO DAILY 7 Days Qty: 27 0RF Rx Instructions: 6 tabs on days 1-2, 5 tabs on days 3, 4 tabs on day 4, 3 tabs on day 5, 2 tabs on day 6, 1 tab on day 7 hydrocodone-acetaminophen 5-325 mg tablet 1 tab PO Q6H PRN (Reason: pain) Qty: 14 0RF Discontinued hydrocodone-acetaminophen 5-325 mg tablet 1 tab PO Q8H PRN (Reason: pain (scale score 7-10)) Qty: 7 0RF hydrocodone-acetaminophen 5-325 mg tablet 1 tab PO Q6H PRN (Reason: pain) Qty: 8 0RF prednisone 50 mg tablet 50 mg PO DAILY Qty: 5 0RF No Action diclofenac sodium 75 mg tablet,delayed release (DR/EC) 75 mg PO BID Qty: 20 0RF meloxicam 7.5 mg tablet 7.5 mg PO .Twice daily Qty: 14 0RF albuterol sulfate 2.5 mg /3 mL (0.083 %) solution for nebulization 2.5 mg INHALATION Q4H PRN (Reason: shortness of breath or wheezing) Qty: 90 0RF Naprosyn 500 mg tablet 500 mg PO BID PRN (Reason: pain) Qty: 20 0RF Discharge Orders: Discharge ED (Routine); Ordered 12/17/23 Ordered By: Carola Pollard Patient Instructions: Thoracic Outlet Syndrome (ED), Opioid Safety, Pain Management Activity Restrictions/Additional Instructions: As we discussed I will try to order you an outpatient MRI of your cervical thoracic spine for further evaluation of your symptoms. I will try to have case management set you up with neurology for further evaluation. Follow-up with primary care at your scheduled appointment next week. Coding Level of Care Code ED Plant Wrapper for Chg Fwd Documented by User: Tarik Grady DO 12/17/23 13:47 HPI - General Adult 2 General: Chief complaint: Chest Pain Stated complaint: sob & cp Time Seen by Provider: 12/17/23 09:11 Related Data Previous Rx's Medication Instructions Recorded diclofenac sodium 75 mg 75 mg PO BID #20 tabs 12/04/22 tablet,delayed release albuterol sulfate 2.5 mg/3 mL 2.5 mg (3 mL) inhalation Q4H PRN 03/26/23 (0.083 %) solution for nebulization shortness of breath or wheezing #90 mL naproxen 500 mg tablet (Naprosyn) 500 mg PO BID PRN pain #20 tabs 03/26/23 meloxicam 7.5 mg tablet 7.5 mg PO .Twice daily #14 tabs 12/14/23 hydrocodone 5 mg-acetaminophen 325 1 tab PO Q6H PRN pain #14 tabs 12/17/23 mg tablet prednisone 10 mg tablet 10 mg PO DAILY 7 days #27 tabs 12/17/23 pregabalin 75 mg capsule (Lyrica) 75 mg PO BID #90 caps 12/17/23 Allergies Allergy/AdvReac Type Severity Reaction Status Date / Time sulfamethoxazole Allergy ALGY-Hives Verified 03/26/23 10:07 [From Bactrim] trimethoprim [From Bactrim] Allergy ALGY-Hives Verified 03/26/23 10:07 Physical Exam 2 Chest: Chest images (male): 1. TTP L anterior chest wall and throughout L shoulder Course 2 Vital Signs: Vital signs: Vital Signs Temperature 97.7 F 12/17/23 10:01 Pulse Rate 69 12/17/23 10:59 Blood Pressure 110/78 12/17/23 10:59 Pulse Oximetry 96 12/17/23 10:59 Oxygen Delivery Me thod Room Air 12/17/23 10:59 [facility] - General Adult Medical Decision Making Do not feel symptoms are secondary to any type of cardiac or pulmonary in etiology. Workup here is benign. At this point I suspect a neurogenic thoracic outlet syndrome. Nothing to suggest arterial or venous compression. Patient is having progressively worsening symptoms to the point where it is starting to interfere with activity at home/work. Other etiologies include cervical radiculopathy, shoulder etiology such as nerve impingement/rotator cuff injury, musculoskeletal pain. Will try and get patient set up with an MRI cervical/thoracic as an outpatient have him follow-up with neurology for further evaluation. He does have follow-up with primary care next week. Will place him on steroids and Lyrica. He is requesting pain medications that he can use sparingly to help at night so he can sleep. Case discussed with Dr. Grady who agrees with care plan for patient. Chart reviewed and patient discussed with midlevel. Agree with assessment and plan. Lab Data 12/17/23 09:38 12/17/23 09:38 Radiology Impressions Chest X-Ray 12/17/23 09:31 IMPRESSION: 1. No acute cardiopulmonary finding. Laboratory Results WBC 6.31 10^3/uL (3.29-11.43) 12/17/23 09:38 RBC 5.14 10^6/uL (3.85-5.65) 12/17/23 09:38 Hgb 16.10 g/dL (11.27-16.99) 12/17/23 09:38 Hct 46.4 % (37-53) 12/17/23 09:38 MCV 90.3 fl (82-101) 12/17/23 09:38 MCH 31.3 pg (27-33) 12/17/23 09:38 MCHC 34.7 g/dL (30-55) 12/17/23 09:38 RDW 11.8 % (12.1-15.1) L 12/17/23 09:38 Plt Count 213 10^3/cmm (157-399) 12/17/23 09:38 MPV 9.9 fL (7.4-10.4) 12/17/23 09:38 Neut % (Auto) 53.6 % 12/17/23 09:38 Lymph % (Auto) 36.0 % 12/17/23 09:38 Woodson % (Auto) 7.6 % 12/17/23 09:38 Eos % (Auto) 2.1 % 12/17/23 09:38 Baso % (Auto) 0.5 % 12/17/23 09:38 Neut # (Auto) 3.39 10^3/uL (1.8-7.7) 12/17/23 09:38 Lymph # (Auto) 2.3 10^3/uL (0.8-4.8) 12/17/23 09:38 Woodson # (Auto) 0.5 10^3/uL (0.2-0.9) 12/17/23 09:38 Eos # (Auto) 0.1 10^3/uL (0.0-0.8) 12/17/23 09:38 Baso # (Auto) 0.0 10^3/uL (0.0-0.1) 12/17/23 09:38 Nucleated RBC % (auto) 0 % 12/17/23 09:38 Nucleated RBCs # 0.0 /100WBC 12/17/23 09:38 D-Dimer <= 0.27 ug/mLFEU (0-0.59) 12/17/23 09:38 Sodium 139 mmol/L (136-145) 12/17/23 09:38 Potassium 4.2 mmol/L (3.5-5.1) 12/17/23 09:38 Chloride 105 mmol/L (98-107) 12/17/23 09:38 Carbon Dioxide 19 mmol/L (22-29) L 12/17/23 09:38 Anion Gap 19.2 (5-19) H 12/17/23 09:38 BUN 8 mg/dL (6-20) 12/17/23 09:38 Creatinine 0.8 mg/dL (0.7-1.2) 12/17/23 09:38 GFR Calculation 109.4 mL/min (90-130) 12/17/23 09:38 Glucose 104 mg/dL (65-115) 12/17/23 09:38 Calculated Osmolality 287 mOsm/kg (285-295) 12/17/23 09:38 Calcium 9.5 mg/dL (8.5-10.5) 12/17/23 09:38 Total Bilirubin 0.3 mg/dL (0.15-1.2) 12/17/23 09:38 AST 33 U/L (0-40) 12/17/23 09:38 ALT 72 U/L (0-41) H 12/17/23 09:38 Alkaline Phosphatase 59 U/L (40-130) 12/17/23 09:38 Troponin T Baseline < 6 ng/L (0-15) 12/17/23 09:38 Total Protein 7.3 g/dL (6.6-8.7) 12/17/23 09:38 Albumin 4.9 g/dL (3.5-5.2) 12/17/23 09:38 Globulin 2.4 g/dL (1.3-4.6) 12/17/23 09:38 Discharge Plan Discharge Patient Disposition: Home Clinical Impression: Neurogenic thoracic outlet syndrome of left brachial plexus Condition: Stable Prescriptions: New Lyrica 75 mg capsule 75 mg PO BID Qty: 90 0RF Rx Instructions: Start 1 tab BID. May increase to 2 tabs BID after a week. prednisone 10 mg tablet 10 mg PO DAILY 7 Days Qty: 27 0RF Rx Instructions: 6 tabs on days 1-2, 5 tabs on days 3, 4 tabs on day 4, 3 tabs on day 5, 2 tabs on day 6, 1 tab on day 7 hydrocodone-acetaminophen 5-325 mg tablet 1 tab PO Q6H PRN (Reason: pain) Qty: 14 0RF Discontinued hydrocodone-acetaminophen 5-325 mg tablet 1 tab PO Q8H PRN (Reason: pain (scale score 7-10)) Qty: 7 0RF hydrocodone-acetaminophen 5-325 mg tablet 1 tab PO Q6H PRN (Reason: pain) Qty: 8 0RF prednisone 50 mg tablet 50 mg PO DAILY Qty: 5 0RF No Action diclofenac sodium 75 mg tablet,delayed release (DR/EC) 75 mg PO BID Qty: 20 0RF meloxicam 7.5 mg tablet 7.5 mg PO .Twice daily Qty: 14 0RF albuterol sulfate 2.5 mg /3 mL (0.083 %) solution for nebulization 2.5 mg INHALATION Q4H PRN (Reason: shortness of breath or wheezing) Qty: 90 0RF Naprosyn 500 mg tablet 500 mg PO BID PRN (Reason: pain) Qty: 20 0RF Discharge Orders: Discharge ED (Routine); Ordered 12/17/23 Ordered By: Carola Pollard Patient Instructions: Thoracic Outlet Syndrome (ED), Opioid Safety, Pain Management Activity Restrictions/Additional Instructions: As we discussed I will try to order you an outpatient MRI of your cervical thoracic spine for further evaluation of your symptoms. I will try to have case management set you up with neurology for further evaluation. Follow-up with primary care at your scheduled appointment next week. Coding Level of Care Code ED Plant Wrapper for Josafat Espinal
[2023-12-17 10:01] VITALS: TEMP 36.5
[2023-12-17 10:03] LABS: Alanine Aminotransferase 72 U/L (0-41); Albumin Level 4.9 g/dL (3.5-5.2); Alkaline Phosphatase 59 U/L (40-130); Anion Gap 19.2 (5-19); Aspartate Amino Transferase 33 U/L (0-40); Blood Urea Nitrogen 8 mg/dL (6-20); Calcium 9.5 mg/dL (8.5-10.5); Carbon Dioxide 19 mmol/L (22-29); Chloride 105 mmol/L (98-107); Globulin 2.4 g/dL (1.3-4.6); Glomerular Filtration Rate 109.4 mL/min (90-130); Glucose 104 mg/dL (65-115); Osmolality Calculated 287 mOsm/kg (285-295); Potassium 4.2 mmol/L (3.5-5.1); Sodium 139 mmol/L (136-145); Total Bilirubin 0.3 mg/dL (0.15-1.2); Total Protein 7.3 g/dL (6.6-8.7); Troponin(5th) Baseline < 6 ng/L (0-15)
--- NOTE | 2023-12-17 10:41 | DCPLANNER ---
faxed mri orders to scheduling for claribel dykes
[2023-12-17 10:59] VITALS: BP 110/78; PULSE 69; O2SAT 96
--- NOTE | 2023-12-18 06:54 | DCPLANNER ---
Message was sent to Neurology for a follow up - Neurogenic thoracic outlet syndrome-
== END 2023-12-17 11:24 | disposition home or self-care (01) ==
PROVIDERS: Emergency Provider Physician Assistant
DX: G54.0 Brachial plexus disorders (principal)
CPT/HCPCS: 36415; 71045; 80053; 84484; 85025; 85378; 93005; 96374; 96375; 99285; J1885; J2270; J2405

== ENCOUNTER 2024-01-23 14:56 | Outpatient (CLI) | payer MEDICAID, SELFPAY ==
--- NOTE | 2024-01-23 15:03 | MR_ITS ---
WS: [id number] MRI THORACIC SPINE WITH CONTRAST TECHNIQUE: Sagittal T1, T2 and STIR imaging. Axial T2 imaging. Post gadolinium imaging was obtained. CLINICAL INFORMATION: BRACHIAL PLEXUS DISORDERS COMPARISON: None. FINDINGS: Normal thoracic alignment. No acute compression. No high-grade central canal stenosis. Cord signal is normal. No lesions within the thoracic cord. No abnormal gadolinium enhancement. Disc space heights and vertebral body heights are well preserved. No significant disc extrusions or protrusions. Mild fa cet arthropathy lower thoracic spine. Adrenal glands are normal. Normal caliber thoracic aorta. MR/MR thoracic spine wo/w [id number] IMPRESSION: No acute thoracic spine findings.
--- NOTE | 2024-01-23 15:03 | MR_ITS ---
WS: [id number] MR CERVICAL SPINE WO/W HISTORY: BRACHIAL PLEXUS DISORDERS TECHNIQUE: Sagittal T1, T2 and T2 inversion recovery; axial T2, T2 gradient and fiesta. Post gadolini um imaging with fat saturation technique. FINDINGS:Straightening of the normal cervical lordosis. No high grade central canal narrowing. Cord s ignal is normal. No abnormal gadolinium enhancement. C2-3: Spinal canal and foramen are patent. C3-4: Minimal disc bulging. Mild facet arthropathy. Mild LEFT foraminal narrowing. Spinal canal is pa tent. C4-5: Minimal disc bulge with endplate ridging. Mild facet arthropathy. Mild LEFT bony foraminal narr owing. C5-6: No significant disc bulging. Mild facet arthropathy. Spinal canal and foramen are patent. C6-7: No significant disc bulging. Mild facet arthropathy. Spinal canal and foramen are patent. C7-T1: Normal MR/MR cervical spine wo/w [id number] IMPRESSION: 1. Straightening of the normal cervical lordosis. No high-grade central canal narrowing. Cord signal is normal. 2. No lesions within the cervical cord. No abnormal gadolinium enhancement. 3. Mild bony foraminal narrowing LEFT C3-C4 and LEFT C4-C5. 4. Mild facet arthropathy described above.
== END 2024-01-23 14:57 | disposition home or self-care (01) ==
LOC: RAD 14:58
PROVIDERS: PCP Nurse Practitioner Family; Visit Provider Nurse Practitioner Family
DX: G54.0 Brachial plexus disorders (principal); R20.0 Anesthesia of skin; R29.898 Other symptoms and signs involving the musculoskeletal system; R07.89 Other chest pain
CPT/HCPCS: 72156; 72157; A9577

== ENCOUNTER 2024-05-10 16:37 | Emergency (ER) | payer MEDICAID, SELFPAY ==
[2024-05-10] VITALS (24 sets, daily range): BP systolic 116–139; BP diastolic 76–91; PULSE 83–111; RESP 13–28; TEMP 36.6; O2SAT 90–100; BMI 29.4
--- NOTE | 2024-05-10 16:49 | XRR_ITS ---
PROCEDURE INFORMATION: Exam: XR Chest Exam date and time: 05/10/2024 5:27 PM Age: 38 years old Clinical indication: Cough and dyspnea; Prior surgery; Surgery date: 6+ months; Surgery type: Thoracic outlet decompression; Additional info: Dyspnea; Cough; Sudden onset swelling to left upper chest; Post op vascular revision for thoracic outlet syndrome x 6 days ago TECHNIQUE: Imaging protocol: Radiologic exam of the chest. Views: 1 view. COMPARISON: CR XR chest 1V portable [id number] 12/17/2023 9:38 AM FINDINGS: Tubes, catheters and devices: Surgical clips overlie the left supraclavicular fossa. Lungs: Lung volumes are slightly diminished with mild bibasilar atelectasis. No focal consolidation. Pleural spaces: Unremarkable. No pleural effusion. No pneumothorax. Heart/Mediastinum: Unremarkable. No cardiomegaly. Bones/joints: Unremarkable. XR/XR chest 1V portable [id number] IMPRESSION: No acute cardiopulmonary findings.
--- NOTE | 2024-05-10 16:57 | ECG_ITS ---
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[id number] Requested By: Tarik Hallman Order Number: [id number] Reading MD: LUCIANO CHAVEZ Measurements Intervals [place] Rate: 86 P: 49 MI: 155 QRS: 6 QRSD: 112 T: 30 QT: 345 QTc: 415 Interpretive Statements SINUS RHYTHM INCOMPLETE RIGHT BUNDLE BRANCH BLOCK [90+ ms QRS DURATION, TERMINAL R IN V1/V2, 40+ ms S IN I/aVL/V4/V5/V6] POSSIBLE LEFT VENTRICULAR HYPERTROPHY [VOLTAGE CRITERIA PLUS LAE OR QRS WIDENING] MODERATE ST DEPRESSION [0.05+ mV ST DEPRESSION] Compared to ECG 12/17/2023 09:18:48 ST (T wave) deviation now present Electronically Signed On 05-12-2024 23:14:28 CTE TEACHER by LUCIANO CHAVEZ [email or web address]
--- NOTE | 2024-05-10 17:07 | ED_ITS ---
Documented by User: Tarik Grady DO 05/12/24 06:06 HPI - SOB/Dyspnea 2 General: Chief Complaint: Shortness of Breath/Dyspnea Stated Complaint: sob , surgery 6 days ago Time Seen by Provider: 05/10/24 16:48 History of Present Illness: HPI Narrative: 38-year-old male 6 days postop thoracic outlet release done at [facility]. The patient notes sudden onset of severe pain in the left upper chest area radiating into the left hand with hyperesthesias of the hand and of the left upper chest region. Pain with deep inspiration. No substernal chest pain all the pain is localized to the left upper chest. No fever sweats or chills. No hemoptysis. Taking oral Dilaudid at home with no relief of symptoms Associated symptoms: Reports chest pain and extremity pain; Deny abdominal pain or fever(s) Related Data Previous Rx's Medication Instructions Recorded diclofenac sodium 75 mg 75 mg PO BID #20 tabs 12/04/22 tablet,delayed release albuterol sulfate 2.5 mg/3 mL 2.5 mg (3 mL) inhalation Q4H PRN 03/26/23 (0.083 %) solution for nebulization shortness of breath or wheezing #90 mL naproxen 500 mg tablet (Naprosyn) 500 mg PO BID PRN pain #20 tabs 03/26/23 meloxicam 7.5 mg tablet 7.5 mg PO .Twice daily #14 tabs 12/14/23 pregabalin 75 mg capsule (Lyrica) 75 mg PO BID #90 caps 12/17/23 amoxicillin-potassium clavulanate 1 tab PO BID 7 days #14 tabs 05/10/24 1,000 mg-62.5 mg tablet,ext.rel 12hr (Augmentin XR) fentanyl 12 mcg/hr transdermal 1 patch transdermal Q72H 6 days #2 05/10/24 patch ea hydromorphone 2 mg tablet 4 mg (2 x 2 mg) PO Q6H PRN pain 05/10/24 #10 tabs Allergies Allergy/AdvReac Type Severity Reaction Status Date / Time shellfish derived Allergy Unknown Unknown Verified 05/11/24 01:37 sulfamethoxazole Allergy ALGY-Hives Verified 03/27/24 12:51 [From Bactrim] trimethoprim [From Bactrim] Allergy ALGY-Hives Verified 03/27/24 12:51 Review of Systems 2 Const: Denies: fever(s) or chills Card: Reports: chest pain Resp: Denies: dyspnea GI: Denies: abdominal pain : Denies: dysuria, urinary frequency or urinary urgency Musc: Reports: extremity pain; Denies: neck pain or back pain Skin/Breast: Denies: rash Physical Exam 2 Const: GENERAL APPEARANCE: cooperative ORIENTATION/CONSCIOUSNESS: Yes awake, Yes oriented to person, Yes oriented to place and Yes oriented to time HENMT: COMMON NORMALS: normocephalic, atraumatic and hearing grossly normal bilaterally HEAD & SCALP: normocephalic and atraumatic Resp: COMMON NORMALS: normal respiratory effort, No retractions, No use of accessory muscles and clear to auscultation bilaterally AUSCULTATION: clear to auscultation bilaterally Cardio: COMMON NORMALS: regular rate, regular rhythm and No murmurs present (Cardio) RATE: regular rate RHYTHM: regular rhythm GI: COMMON NORMALS: Soft to palpation and No hepatosplenomegaly present A USCULTATION: Yes normoactive bowel sounds PALPATION: Yes Soft to palpation, No Tenderness to palpation present (GI), No Guarding due to palpation present (GI) and Yes No hepatosplenomegaly present Extremity: COMMON NORMALS: normal to inspection, capillary refill normal, no clubbing, cyanosis or edema, no calf tenderness and no pedal edema Neuro: SENSORIUM/ORIENTATION: Yes oriented to person, Yes oriented to place and Yes oriented to time Skin: COMMON NORMALS: no rashes or lesions noted GENERAL SKIN EXAM: no rashes or lesions noted Course 2 Vital Signs: Vital signs: Vital Signs Temperature 97.9 F 05/10/24 16:50 Pulse Rate 111 H 05/10/24 23:46 Respiratory Rate 18 05/10/24 23:46 Blood Pressure 139/88 05/10/24 23:46 Pulse Oximetry 95 05/10/24 23:46 Oxygen Delivery Me thod Room Air 05/10/24 23:46 MDM - SOB/Dyspnea Medical Decision Making Care signed out to Dr. Talamantes at change of shift. See final notes for diagnosis and disposition. Lab Data 05/10/24 17:23 05/10/24 17:23 Labs/Radiology: Radiology Impressions Chest X-Ray 05/10/24 16:49 IMPRESSION: No acute cardiopulmonary findings. Chest CTA 05/10/24 17:38 IMPRESSION: 1. Postsurgical changes in the left supraclavicular fossa and base of the left neck with ill-defined fluid and fat stranding. Given mild complexity of the fluid, developing infection is not excluded. No abscess formation at this time. 2. No definite evidence of pulmonary embolism, though assessment of the left lower lobe subsegmental arteries is limited due to artifact. 3. Bibasilar atelectasis, [id number]. Superimposed infection in the left lung base is possible in the correct clinical setting. Laboratory Results WBC 6.90 10^3/uL (3.29-11.43) 05/10/24 17: RBC 4.80 10^6/uL (3.85-5.65) 05/10/24 17:23 Hgb 14.90 g/dL (11.27-16.99) 05/10/24 17:23 Hct 43.2 % (37-53) 05/10/24 17:23 MCV 90.0 fl (82-101) 05/10/24 17:23 MCH 31.0 pg (27-33) 05/10/24 17: MCHC 34.5 g/dL (30-55) 05/10/24 17: RDW 11.4 % (12.1-15.1) L 05/10/24 17:23 Plt Count 241 10^3/cmm (157-399) 05/10/24 17:23 MPV 9.7 fL (7.4-10.4) 05/10/24 17:23 Neut % (Auto) 50.8 % 05/10/24 17:23 Lymph % (Auto) 37.0 % 05/10/24 17:23 [place] % (Auto) 8.8 % 05/10/24 17:23 Eos % (Auto) 2.9 % 05/10/24 17: Baso % (Auto) 0.4 % 05/10/24 17:23 Neut # (Auto) 3.50 10^3/uL (1.8-7.7) 05/10/24 17:23 Lymph # (Auto) 2.6 10^3/uL (0.8-4.8) 05/10/24 17:23 [place] # (Auto) 0.6 10^3/uL (0.2-0.9) 05/10/24 17:23 Eos # (Auto) 0.2 10^3/uL (0.0-0.8) 05/10/24 17:23 Baso # (Auto) 0.0 10^3/uL (0.0-0.1) 05/10/24 17:23 Nucleated RBC % (auto) 0 % 05/10/24 17: Nucleated RBCs # 0.0 /100WBC 05/10/24 17:23 Sodium 138 mmol/L (136-145) 05/10/24 17:23 Potassium 3.9 mmol/L (3.5-5.1) 05/10/24 17:23 Chloride 101 mmol/L (98-107) 05/10/24 17:23 Carbon Dioxide 25 mmol/L (22-29) 05/10/24 17:23 Anion Gap 15.9 (5-19) 05/10/24 17:23 BUN 10 mg/dL (6-20) 05/10/24 17:23 Creatinine 0.7 mg/dL (0.7-1.2) 05/10/24 17:23 GFR Calculation 127.6 mL/min (90-130) 05/10/24 17:23 Glucose 90 mg/dL (65-115) 05/10/24 17:23 Calculated Osmolality 285 mOsm/kg (285-295) 05/10/24 17:23 Calcium 10.2 mg/dL (8.5-10.5) 05/10/24 17:23 Total Bilirubin 0.3 mg/dL (0.15-1.2) 05/10/24 17:23 AST 28 U/L (0-40) 05/10/24 17:23 ALT 48 U/L (0-41) H 05/10/24 17:23 Alkaline Phosphatase 86 U/L (40-130) 05/10/24 17:23 Total Protein 8.1 g/dL (6.6-8.7) 05/10/24 17:23 Albumin 4.5 g/dL (3.5-5.2) 05/10/24 17:23 Globulin 3.6 g/dL (1.3-4.6) 05/10/24 17:23 Discharge Plan Discharge Patient Disposition: Home Clinical Impression: Post-operative pain, Numbness and tingling in left arm, Constricting chest pain often radiating down left upper extremity, At risk for surgical site infection Condition: Stable Prescriptions: New fentanyl 12 mcg/hr patch 72 hour 1 patch transdermal Q72H 6 Days Qty: 2 0RF hydromorphone 2 mg tablet 4 mg PO Q6H PRN (Reason: pain) Qty: 10 0RF amoxicillin-pot clavulanate [Augmentin XR] 1,000-62.5 mg tablet extended release 12 hr 1 tab PO BID 7 Days Qty: 14 0RF Continued diclofenac sodium 75 mg tablet,delayed release (DR/EC) 75 mg PO BID Qty: 20 0RF meloxicam 7.5 mg tablet 7.5 mg PO .Twice daily Qty: 14 0RF albuterol sulfate 2.5 mg /3 mL (0.083 %) solution for nebulization 2.5 mg INHALATION Q4H PRN (Reason: shortness of breath or wheezing) Qty: 90 0RF Naprosyn 500 mg tablet 500 mg PO BID PRN (Reason: pain) Qty: 20 0RF Lyrica 75 mg capsule 75 mg PO BID Qty: 90 0RF Rx Instructions: Start 1 tab BID. May increase to 2 tabs BID after a week. Discontinued hydrocodone-acetaminophen 5-325 mg tablet 1 tab PO Q6H PRN (Reason: pain) Qty: 14 0RF Discharge Orders: Discharge ED (Routine); Ordered 05/10/24 Ordered By: Jacques Talamantes Referrals: Caleb,ASHKAN CollinsP [Primary Care Provider] - Discharge Diet: Usual diet Discharge Activity: Limit activity as instructed Patient Instructions: Opioid Safety, Pain Management Activity Restrictions/Additional Instructions: While taking opiate therapy it is my advice that you take MiraLAX 1 dose daily as well as pick up and delivery driver senna at the pharmacy and take at least 1 tablet twice daily. You can take up to 2 tablets twice daily. This will help counter the slowing of the GI tract that is inevitable while taking opiates. Sign Out Sign Out Data: Patient Sign Out occurred on 05/10/24 at 18:13. Patient's care was discussed, and care was transferred from Tarik Grady DO to Jacques Talamantes MD. Coding Level of Care Code ED Director Of Brand Marketing for Chg Fwd Documented by User: Jacques Talamantes MD 05/10/24 23:16 HPI - SOB/Dyspnea 2 General: Chief Complaint: Shortness of Breath/Dyspnea Stated Complaint: sob , surgery 6 days ago Time Seen by Provider: 05/10/24 16:48 Related Data Previous Rx's Medication Instructions Recorded diclofenac sodium 75 mg 75 mg PO BID #20 tabs 12/04/22 tablet,delayed release albuterol sulfate 2.5 mg/3 mL 2.5 mg (3 mL) inhalation Q4H PRN 03/26/23 (0.083 %) solution for nebulization shortness of breath or wheezing #90 mL naproxen 500 mg tablet (Naprosyn) 500 mg PO BID PRN pain #20 tabs 03/26/23 meloxicam 7.5 mg tablet 7.5 mg PO .Twice daily #14 tabs 12/14/23 pregabalin 75 mg capsule (Lyrica) 75 mg PO BID #90 caps 12/17/23 amoxicillin-potassium clavulanate 1 tab PO BID 7 days #14 tabs 05/10/24 1,000 mg-62.5 mg tablet,ext.rel 12hr (Augmentin XR) fentanyl 12 mcg/hr transdermal 1 patch transdermal Q72H 6 days #2 05/10/24 patch ea hydromorphone 2 mg tablet 4 mg (2 x 2 mg) PO Q6H PRN pain 05/10/24 #10 tabs Allergies Allergy/AdvReac Type Severity Reaction Status Date / Time shellfish derived Allergy Unknown Unknown Verified 05/11/24 01:37 sulfamethoxazole Allergy ALGY-Hives Verified 03/27/24 12:51 [From Bactrim] trimethoprim [From Bactrim] Allergy ALGY-Hives Verified 03/27/24 12:51 Course 2 ED course: Patient fortunately is normal, CT has fluid collection in the area of the surgery that CT qualifies as possible infection, patient reports increased warmth and pain. Will draw blood cultures, start Zosyn and bank and contact outside hospital that performed surgical procedure. Reevaluation(s): Reevaluation #1: Patient reevaluated, continued out of [address] pain[address] Discussed results of CT scan with him and paging outside hospital Time: 20:05 Reevaluation #2: Reviewed case with a Dr. Cespedes SP? At [facility] in [place]. He reports that the CT is unremarkable for the patient's postop course as well as his current swelling and pain. Reports we can start some Augmentin and he can contact the clinic on Sunday. We can augment the pain medication if we feel the need to. Time: 21:05 Vital Signs: Vital signs: Vital Signs Temperature 97.9 F 05/10/24 16:50 Pulse Rate 111 H 05/10/24 23:46 Respiratory Rate 18 05/10/24 23:46 Blood Pressure 139/88 05/10/24 23:46 Pulse Oximetry 95 05/10/24 23:46 Oxygen Delivery Me thod Room Air 05/10/24 23:46 MDM - SOB/Dyspnea Medical Decision Making Care signed out to Dr. Talamantes at change of shift. See final notes for diagnosis and disposition. Spoke with surgeon at [facility] on comfort for Thomas. He reports CT is unimpressive for patient's postop course. Along with his symptoms today. Including the acute swelling today. Advised starting Augmentin just in case despite normal white count and adjusting pain medication. Can patient can follow-up on Sunday by calling the office. Medical Records I reviewed the patient's medical records. Lab Data I reviewed the patient's lab results. 05/10/24 17:23 05/10/24 17:23 Labs/Radiology: Radiology Impressions Chest X-Ray 05/10/24 16:49 IMPRESSION: No acute cardiopulmonary findings. Chest CTA 05/10/24 17:38 IMPRESSION: 1. Postsurgical changes in the left supraclavicular fossa and base of the left neck with ill-defined fluid and fat stranding. Given mild complexity of the fluid, developing infection is not excluded. No abscess formation at this time. 2. No definite evidence of pulmonary embolism, though assessment of the left lower lobe subsegmental arteries is limited due to artifact. 3. Bibasilar atelectasis, [id number]-right. Superimposed infection in the left lung base is possible in the correct clinical setting. Laboratory Results WBC 6.90 10^3/uL (3.29-11.43) 05/10/24 17: RBC 4.80 10^6/uL (3.85-5.65) 05/10/24 17: Hgb 14.90 g/dL (11.27-16.99) 05/10/24 17: Hct 43.2 % (37-53) 05/10/24 17: MCV 90.0 fl (82-101) 05/10/24 17: MCH 31.0 pg (27-33) 05/10/24 17: MCHC 34.5 g/dL (30-55) 05/10/24 17: RDW 11.4 % (12.1-15.1) L 05/10/24 17: Plt Count 241 10^3/cmm (157-399) 05/10/24 17: MPV 9.7 fL (7.4-10.4) 05/10/24 17: Neut % (Auto) 50.8 % 05/10/24 17:23 Lymph % (Auto) 37.0 % 05/10/24 17:23 [place] % (Auto) 8.8 % 05/10/24 17: Eos % (Auto) 2.9 % 05/10/24 17: Baso % (Auto) 0.4 % 05/10/24: Neut # (Auto) 3.50 10^3/uL (1.8-7.7) 05/10/24 17: Lymph # (Auto) 2.6 10^3/uL (0.8-4.8) 05/10/24 17:23 [place] # (Auto) 0.6 10^3/uL (0.2-0.9) 05/10/24: Eos # (Auto) 0.2 10^3/uL (0.0-0.8) 05/10/24 17: Baso # (Auto) 0.0 10^3/uL (0.0-0.1) 05/10/24 17: Nucleated RBC % (auto) 0 % 05/10/24 17: Nucleated RBCs # 0.0 /100WBC 05/10/24 17:23 Sodium 138 mmol/L (136-145) 05/10/24 17:23 Potassium 3.9 mmol/L (3.5-5.1) 05/10/24 17:23 Chloride 101 mmol/L (98-107) 05/10/24 17:23 Carbon Dioxide 25 mmol/L (22-29) 05/10/24 17:23 Anion Gap 15.9 (5-19) 05/10/24 17:23 BUN 10 mg/dL (6-20) 05/10/24 17:23 Creatinine 0.7 mg/dL (0.7-1.2) 05/10/24 17:23 GFR Calculation 127.6 mL/min (90-130) 05/10/24 17:23 Glucose 90 mg/dL (65-115) 05/10/24 17:23 Calculated Osmolality 285 mOsm/kg (285-295) 05/10/24 17:23 Calcium 10.2 mg/dL (8.5-10.5) 05/10/24 17:23 Total Bilirubin 0.3 mg/dL (0.15-1.2) 05/10/24 17:23 AST 28 U/L (0-40) 05/10/24 17:23 ALT 48 U/L (0-41) H 05/10/24 17:23 Alkaline Phosphatase 86 U/L (40-130) 05/10/24 17:23 Total Protein 8.1 g/dL (6.6-8.7) 05/10/24 17:23 Albumin 4.5 g/dL (3.5-5.2) 05/10/24 17:23 Globulin 3.6 g/dL (1.3-4.6) 05/10/24 17:23 All radiology interpretation(s) finalized by discharge ED provider radiology interpretation(s): X-ray of personally reviewed nuclear bone, CT also reviewed and shows some fluid collections and mild stranding in the left supraclavicular and neck. (Surgeon reports this is normal for the postop course. Described the swelling that came on suddenly this afternoon. He still felt that this was nothing that could be treated at home. Normal white count reassuring. Reported to have the patient contact the clinic on Sunday.) Discharge Plan Discharge Patient Disposition: Home Clinical Impression: Post-operative pain, Numbness and tingling in left arm, Constricting chest pain often radiating down left upper extremity, At risk for surgical site infection Condition: Stable Prescriptions: New fentanyl 12 mcg/hr patch 72 hour 1 patch transdermal Q72H 6 Days Qty: 2 0RF hydromorphone 2 mg tablet 4 mg PO Q6H PRN (Reason: pain) Qty: 10 0RF amoxicillin-pot clavulanate [Augmentin XR] 1,000-62.5 mg tablet extended release 12 hr 1 tab PO BID 7 Days Qty: 14 0RF Continued diclofenac sodium 75 mg tablet,delayed release (DR/EC) 75 mg PO BID Qty: 20 0RF meloxicam 7.5 mg tablet 7.5 mg PO .Twice daily Qty: 14 0RF albuterol sulfate 2.5 mg /3 mL (0.083 %) solution for nebulization 2.5 mg INHALATION Q4H PRN (Reason: shortness of breath or wheezing) Qty: 90 0RF Naprosyn 500 mg tablet 500 mg PO BID PRN (Reason: pain) Qty: 20 0RF Lyrica 75 mg capsule 75 mg PO BID Qty: 90 0RF Rx Instructions: Start 1 tab BID. May increase to 2 tabs BID after a week. Discontinued hydrocodone-acetaminophen 5-325 mg tablet 1 tab PO Q6H PRN (Reason: pain) Qty: 14 0RF Discharge Orders: Discharge ED (Routine); Ordered 05/10/24 Ordered By: Jacques Talamantes Referrals: Ellis,Karina, OIL INSPECTOR [Primary Care Provider] - Discharge Diet: Usual diet Discharge Activity: Limit activity as instructed Patient Instructions: Opioid Safety, Pain Management Activity Restrictions/Additional Instructions: While taking opiate therapy it is my advice that you take MiraLAX 1 dose daily as well as pick up and delivery driver senna at the pharmacy and take at least 1 tablet twice daily. You can take up to 2 tablets twice daily. This will help counter the slowing of the GI tract that is inevitable while taking opiates. Sign Out Sign Out Data: Patient Sign Out occurred on 05/10/24 at 18:13. Patient's care was discussed, and care was transferred from Tarik Grady DO to Jacques Talamantes MD. Coding Level of Care Code ED Director Of Brand Marketing for Jayeg Kylie
[2024-05-10] MEDS: ipratropium-albuterol 3 mL Neb INHALATION (17:08)
[2024-05-10 17:36] LABS: Basophils % 0.4 %; Eosinophils # 0.2 10^3/uL (0.0-0.8); Eosinophils % 2.9 %; Hematocrit 43.2 % (37-53); Lymphocytes # 2.6 10^3/uL (0.8-4.8); Mean Corpuscular HGB Conc 34.5 g/dL (30-55); Mean Platelet Volume 9.7 fL (7.4-10.4); Monocytes # 0.6 10^3/uL (0.2-0.9); Monocytes % 8.8 %; Neutrophils % 50.8 %; Nucleated Red Blood Cells % 0 %; Platelet Count 241 10^3/cmm (157-399); Red Cell Distribution Width 11.4 % (12.1-15.1)
--- NOTE | 2024-05-10 17:38 | CTR_ITS ---
PROCEDURE INFORMATION: Exam: CTA Chest With Contrast Exam date and time: 05/10/2024 6:30 PM Age: 38 years old Clinical indication: Left-sided; Prior surgery; Surgery date: 3-7 days post-operative; Surgery type: Left thoracic outlet surgyer 05/05/2024; Patient HX: C/O left upper chest pain with dyspnea post thoracic outlet surgery 05/05/2024. ; Additional info: Sudden onset dyspnea and chest pain postop TECHNIQUE: Imaging protocol: Computed tomographic angiography of the chest with contrast. Exam focused on the arteries. 3D rendering (Not supervised by radiologist): MIP and/or 3D reconstructed images were created by the technologist. Radiation optimization: All CT scans at this facility use at least one of these dose optimization techniques: automated exposure control; mA and/or kV adjustment per patient size (includes targeted exams where dose is matched to clinical indication); or iterative reconstruction. Contrast material: OMNI 350; Contrast volume: 70 ml; Contrast route: INTRAVENOUS (IV); COMPARISON: CR (CHEST, ) 05/10/2024 5:27 PM RADIATION DOSE METRICS: Total DLP (mGy-cm): 488.5 FINDINGS: Pulmonary arteries: The main pulmonary artery is normal in caliber. Assessment of the subsegmental branches within the left lower lobe is limited by timing of contrast as well as mild motion artifact. Within this limitation, no definite filling defects are seen within the pulmonary arterial vasculature to the level of the proximal subsegmental pulmonary arteries. Aorta: Unremarkable. No aortic aneurysm. No aortic dissection. Lungs: Mild dependent atelectasis in bilateral lower lobes, [id number]-ukwr-right. No focal consolidation or generalized interstitial process. Pleural spaces: Trace left pleural fluid. No pneumothorax. Heart: Unremarkable. No cardiomegaly. No pericardial effusion. Lymph nodes: Unremarkable. No enlarged lymph nodes. Gallbladder and biliary ducts: Hepatic steatosis with focal fatty sparing adjacent of the gallbladder fossa. Bones/joints: Partial resection of the left 1st rib. No acute osseous findings. Soft tissues: Ill-defined fluid and fat stranding in the left supraclavicular fossa and base of the left neck with a few small subcutaneous gas locules as well as surgical clips. Fluid extends to the left apical pleural surface. Some of the fluid measures above simple fluid in attenuation. CT/CT angio chest PE protcl [id number] IMPRESSION: 1. Postsurgical changes in the left supraclavicular fossa and base of the left neck with ill-defined fluid and fat stranding. Given mild complexity of the fluid, developing infection is not excluded. No abscess formation at this time. 2. No definite evidence of pulmonary embolism, though assessment of the left lower lobe subsegmental arteries is limited due to artifact. 3. Bibasilar atelectasis, [id number]-right. Superimposed infection in the left lung base is possible in the correct clinical setting.
[2024-05-10] MEDS: dexamethasone 10 mg/mL INJ IM (17:49)
[2024-05-10] MEDS: ketorolac 30 mg/mL INJ IVP (17:49)
[2024-05-10] MEDS: morphine 4 mg/mL SDV 1 mL IVP (17:49)
[2024-05-10 17:59] LABS: Alanine Aminotransferase 48 U/L (0-41); Albumin Level 4.5 g/dL (3.5-5.2); Alkaline Phosphatase 86 U/L (40-130); Anion Gap 15.9 (5-19); Aspartate Amino Transferase 28 U/L (0-40); Blood Urea Nitrogen 10 mg/dL (6-20); Calcium 10.2 mg/dL (8.5-10.5); Carbon Dioxide 25 mmol/L (22-29); Chloride 101 mmol/L (98-107); Creatinine Clr Calc Pharmacy 187.5079; Globulin 3.6 g/dL (1.3-4.6); Glomerular Filtration Rate 127.6 mL/min (90-130); Glucose 90 mg/dL (65-115); Osmolality Calculated 285 mOsm/kg (285-295); Potassium 3.9 mmol/L (3.5-5.1); Sodium 138 mmol/L (136-145); Total Bilirubin 0.3 mg/dL (0.15-1.2); Total Protein 8.1 g/dL (6.6-8.7)
[2024-05-10] MEDS: ondansetron 2 mg/ML SDV 2 mL 4 MG IVP (20:24)
[2024-05-10] MEDS: HYDROmorphone 1 mg/mL INJ 1 mL IVP ×3 (20:25→23:38)
[2024-05-10] MEDS: piperacillin-tazobactam 4.5 GM in sodium chloride 0.9% (plus) 50 ML IV (20:28)
[2024-05-10] MEDS: vancomycin 2,000 MG/400 ML PIGGYBACK 200 MG IV (20:47)
[2024-05-10] MEDS: fentaNYL 12 mcg Patch 1 PATCH TRANSDERMA (22:05)
== END 2024-05-10 23:46 | disposition home or self-care (01) ==
PROVIDERS: Family Medicine; Emergency Provider Emergency Medicine; PCP Nurse Practitioner Family
DX: G89.18 Other acute postprocedural pain (principal); R20.0 Anesthesia of skin; R07.89 Other chest pain
CPT/HCPCS: 71045; 71275; 80053; 85025; 87040; 93005; 94640; 96374; 96375; 96376; 99285; J1100; J1171; J1885; J2270; J2405; J2543; J3372

== ENCOUNTER 2024-05-19 10:43 | Outpatient (CLI) | payer MEDICAID, SELFPAY ==
--- NOTE | 2024-05-19 11:00 | MR_ITS ---
WS: [id number] MRI BRAIN/ORBITS WITH AND WITHOUT CONTRAST. COMPARISON: None Multiplanar, multisequence imaging is performed with and without contrast. MultiHance 20 mL. Diffusion imaging is normal. No significant volume loss or atrophy in the cerebrum or cerebellum. No prior infarct or small vessel disease. Ventricles and extra-axial spaces are normal. No inferior disp lacement of cerebellar tonsils. Normal clivus and pituitary gland. No hippocampal atrophy. Cerebellopontine angles are normal. There is no mass or abnormal enhancement. Orbits: Evaluation of the orbits and optic nerves is limited as patient became uncomfortable towards the end of the examination and there was significant motion. Patient elected not to continue with the study and repeat imaging. No obvious enhancement within the optic nerves. Extraocular muscles are mo re difficult to visualize with this amount of motion. No globe abnormality or mass effect. Normal pos ition of the optic chiasm and the infundibulum. No intracranial mass or abnormal enhancement. Sinuses are clear. Mastoid air cells. MR/MR head orbits wo/w* [id number] IMPRESSION: 1. No enhancing mass or prior infarct. 2. No significant cerebral atrophy. 3. Evaluation of the orbits and the optic nerves is limited as patient became uncomfortable towards the end of the examination and was unable to continue wit h repeat sequences. 4. Normal optic chiasm and infundibulum. 5. Limited evaluation of the optic nerves demonstrates no enhancement.
== END 2024-05-19 10:44 | disposition home or self-care (01) ==
LOC: RAD 10:43
PROVIDERS: PCP Nurse Practitioner Family; Visit Provider Specialist
DX: G43.711 Chronic migraine without aura, intractable, with status migrainosus (principal); R20.0 Anesthesia of skin; R20.2 Paresthesia of skin
CPT/HCPCS: 70543; 70553

== ENCOUNTER 2024-09-08 11:04 | Emergency (ER) | payer MEDICAID, SELFPAY ==
[2024-09-08 11:35] VITALS: BP 128/78; PULSE 72; RESP 18; TEMP 36.7; O2SAT 96; BMI 26.2
--- NOTE | 2024-09-08 11:47 | CT_ITS ---
WS: [id number] CT ABDOMEN PELVIS TECHNIQUE: Contrast-enhanced CT of the abdomen and pelvis with coronal and sagittal reformatted images. CLINICAL INFORMATION: rlq pain COMPARISON: None. DLP: 794.[address] scans at [facility] use at least one of these dose optimization techniques: automated exposure control; mA and/or kV adjustment per patient size (includes targeted exams where dose is matched to clinical indication); or iterative reconstruction. FINDINGS: Normal appendix in the RIGHT lower quadrant. Fatty liver. Normal spleen. Gastric mucosal thickening with enhancement compatible with gastritis. Evidence of duodenitis. Lung bases are well aerated. Normal gallbladder. Normal portal vein and splenic vein. Adrenal glands are normal. Normal renal parenchymal enhancement. Small RIGHT renal cyst. Normal pancreatic enhancement. Normal caliber abdominal aorta. Small fat-containing umbilical hernia. Normal sigmoid colon. CT/CT abdomen pelvis w con* [id number] IMPRESSION: 1. Normal appendix. No evidence of acute appendicitis. 2. Evidence of gastritis and duodenitis. 3. Fatty liver. 4. No other acute findings.
--- NOTE | 2024-09-08 11:47 | W.ED.ABDPA2 ---
HPI - Abdominal Pain General: Chief Complaint: Abdominal Pain Stated Complaint: abd pain Time Seen by Provider: 09/08/24 11:44 Source: patient Mode of arrival: ambulatory Limitations: no limitations History of Present Illness: 38-year-old male states been having right lower quadrant pain over the last 3 days he states that this worsened and the pain is sharp in nature he has had fevers at home along with some slight dysuria denies any testicle pain he rates his pain a 8 out of 10 currently denies any worse improved factors Associated Symptoms: Reports dysuria; Denies chills, diarrhea, fever(s), nausea and vomiting Related Data Home Medications ?Medication ?Instructions ?Recorded ?Confirmed albuterol sulfate 90 mcg/actuation inhalation 05/13/24 06/26/24 aerosol inhaler (Ventolin HFA) cyclobenzaprine 5 mg tablet mg PO 05/13/24 06/26/24 gabapentin 600 mg tablet mg PO 05/13/24 06/26/24 hydrocodone 7.5 mg-acetaminophen tab PO 05/13/24 06/26/24 325 mg tablet naloxone 4 mg/actuation nasal intranasal 05/13/24 06/26/24 spray (Narcan) Previous Rx's ?Medication ?Instructions ?Recorded albuterol sulfate 2.5 mg/3 mL 2.5 mg (3 mL) inhalation Q4H PRN 03/26/23 (0.083 %) solution for nebulization shortness of breath or wheezing #90 mL meloxicam 7.5 mg tablet 7.5 mg PO .Twice daily #14 tabs 12/14/23 hydromorphone 2 mg tablet 4 mg (2 x 2 mg) PO Q6H PRN pain 05/10/24 #10 tabs venlafaxine 150 mg 150 mg PO DAILY #30 caps 05/13/24 capsule,extended release 24 hr (Effexor XR) venlafaxine 75 mg capsule,extended 75 mg PO DAILY #7 caps 05/13/24 release 24 hr hydrocodone 5 mg-acetaminophen 325 1 tab PO Q6H PRN pain #14 tabs 09/08/24 mg tablet ondansetron 4 mg disintegrating 4 mg PO Q6H PRN nausea and 09/08/24 tablet vomiting #14 tabs pantoprazole 40 mg tablet,delayed 40 mg PO DAILY #60 tabs 09/08/24 release (Protonix) Allergies Allergy/AdvReac Type Severity Reaction Status Date / Time shellfish derived Allergy Unknown Unknown Verified 06/26/24 09:46 sulfamethoxazole (From Allergy ALGY-Hives Verified 06/26/24 09:46 Bactrim) trimethoprim (From Bactrim) Allergy ALGY-Hives Verified 06/26/24 09:46 Review of Systems Const: Denies: fever(s), chills, body aches or change in appetite ENMT: Denies: throat pain or dental pain Card: Denies: chest pain Resp: Denies: dyspnea GI: Reports: abdominal pain; Denies: nausea, vomiting or diarrhea : Reports: dysuria Musc: Denies: neck pain or back pain Skin/Breast: Denies: rash Neuro: Denies: headache(s) PFSH ED PFSH: Social History Smoking and tobacco/nicotine status: current every day tobacco/nicotine user (vaping) Physical Exam Const: COMMON NORMALS: no acute distress, patient oriented x3 and healthy appearing HENMT: COMMON NORMALS: normocephalic and atraumatic HEAD & SCALP: normocephalic and atraumatic Eye: COMMON NORMALS: conjunctivae normal CONJUNCTIVA: Yes conjunctivae normal Neck/C-Spine: COMMON NORMALS: full ROM and supple Chest: COMMONS NORMALS: normal inspection of the chest Resp: COMMON NORMALS: normal respiratory effort Cardio: COMMON NORMALS: regular rate RATE: regular rate GI: COMMON NORMALS: Normal to inspection, nondistended, normoactive bowel sounds present, Soft to palpation and no masses PALPATION: Yes Soft to palpation and Yes Tenderness to palpation present (GI) Details: RLQ Extremity: COMMON NORMALS: normal to inspection and full ROM Neuro: COMMON NORMALS: patient oriented x3, moves all extremities and no focal motor deficits Psych: COMMON NORMALS: mental status grossly normal, Normal thought process present and cooperative THOUGHT PROCESS: Normal thought process present Skin: COMMON NORMALS: no rashes or lesions noted and no wounds GENERAL SKIN EXAM: no rashes or lesions noted Course Vital Signs: Vital signs: Vital Signs Temperature 98.0 F 09/08/24 11:35 Pulse Rate 81 09/08/24 13:04 Respiratory Rate 18 09/08/24 11:35 Blood Pressure 117/87 09/08/24 13:04 Pulse Oximetry 100 09/08/24 13:04 Oxygen Delivery Me thod Room Air 09/08/24 13:04 MDM - Abdominal Pain Medical Decision Making Patient presents here with abdominal pain imaging lab works all normal he does not have any testicle pain does have slight gastritis we will start him on Protonix pain meds get him follow-up with surgery return if worsening he understands agrees to plan. Medical Records I reviewed the patient's medical records. Lab Data I reviewed the patient's lab results. 09/08/24 11:50 09/08/24 11:50 Labs/Radiology: Radiology Impressions Abdomen/Pelvis CT 09/08/24 11:47 IMPRESSION: 1. Normal appendix. No evidence of acute appendicitis. 2. Evidence of gastritis and duodenitis. 3. Fatty liver. 4. No other acute findings. Laboratory Results WBC 5.91 10^3/uL (3.29-11.43) 09/08/24 11:50 RBC 5.15 10^6/uL (3.85-5.65) 09/08/24 11:50 Hgb 16.00 g/dL (11.27-16.99) 09/08/24 11:50 Hct 47.1 % (37-53) 09/08/24 11:50 MCV 91.5 fl (82-101) 09/08/24 11:50 MCH 31.1 pg (27-33) 09/08/24 11:50 MCHC 34.0 g/dL (30-55) 09/08/24 11:50 RDW 11.8 % (12.1-15.1) L 09/08/24 11:50 Plt Count 222 10^3/cmm (157-399) 09/08/24 11:50 MPV 10.2 fL (7.4-10.4) 09/08/24 11:50 Neut % (Auto) 50.5 % 09/08/24 11:50 Lymph % (Auto) 39.1 % 09/08/24 11:50 [place] % (Auto) 6.8 % 09/08/24 11:50 Eos % (Auto) 2.7 % 09/08/24 11:50 Baso % (Auto) 0.7 % 09/08/24 11:50 Neut # (Auto) 2.99 10^3/uL (1.8-7.7) 09/08/24 11:50 Lymph # (Auto) 2.3 10^3/uL (0.8-4.8) 09/08/24 11:50 [place] # (Auto) 0.4 10^3/uL (0.2-0.9) 09/08/24 11:50 Eos # (Auto) 0.2 10^3/uL (0.0-0.8) 09/08/24 11:50 Baso # (Auto) 0.0 10^3/uL (0.0-0.1) 09/08/24 11:50 Nucleated RBC % (auto) 0 % 09/08/24 11:50 Nucleated RBCs # 0.0 /100WBC 09/08/24 11:50 Sodium 137 mmol/L (136-145) 09/08/24 11:50 Potassium 4.3 mmol/L (3.5-5.1) 09/08/24 11:50 Chloride 101 mmol/L (98-107) 09/08/24 11:50 Carbon Dioxide 25 mmol/L (22-29) 09/08/24 11:50 Anion Gap 15.3 (5-19) 09/08/24 11:50 BUN 7 mg/dL (6-20) 09/08/24 11:50 Creatinine 0.9 mg/dL (0.7-1.2) 09/08/24 11:50 GFR Calculation 95.5 mL/min (90-130) 09/08/24 11:50 Glucose 94 mg/dL (65-115) 09/08/24 11:50 Calculated Osmolality 282 mOsm/kg (285-295) L 09/08/24 11:50 Calcium 10.1 mg/dL (8.5-10.5) 09/08/24 11:50 Total Bilirubin 0.4 mg/dL (0.15-1.2) 09/08/24 11:50 AST 32 U/L (0-40) 09/08/24 11:50 ALT 47 U/L (0-41) H 09/08/24 11:50 Alkaline Phosphatase 60 U/L (40-130) 09/08/24 11:50 Total Protein 7.9 g/dL (6.6-8.7) 09/08/24 11:50 Albumin 4.8 g/dL (3.5-5.2) 09/08/24 11:50 Globulin 3.1 g/dL (1.3-4.6) 09/08/24 11:50 Lipase 41 U/L (13-60) 09/08/24 11:50 Urine Color Yellow (Yellow) 09/08/24 12:30 Urine Appearance Clear (CLEAR) 09/08/24 12:30 Urine pH 8.5 (5-7) A 09/08/24 12:30 Ur Specific [place] 1.053 (1.005-1.030) H 09/08/24 12:30 Urine Protein Negative (Negative) 09/08/24 12:30 Urine Glucose (UA) Negative (Normal) 09/08/24 12:30 Urine Ketones Negative (Negative) 09/08/24 12:30 Urine Blood Negative (Negative) 09/08/24 12:30 Urine Nitrate Negative (Negative) 09/08/24 12:30 Urine Bilirubin Negative (Negative) 09/08/24 12:30 Urine Urobilinogen 0.2 mg/dL (Negative) 09/08/24 12:30 Ur Leukocyte Esterase Negative (Negative) 09/08/24 12:30 Urine RBC 0-2 /hpf (0-2) 09/08/24 12:30 Urine WBC 0-5 /hpf (0-5) 09/08/24 12:30 Ur Squamous Epith Cells 0-5 /hpf (0-5) 09/08/24 12:30 Amorphous Sediment Not Reportable 09/08/24 12:30 Urine Bacteria None seen /hpf (NONE) 09/08/24 12:30 Hyaline Casts 0-4 /lpf H 09/08/24 12:30 All radiology interpretation(s) finalized by discharge Discharge Plan Discharge Patient Disposition: Home Clinical Impression: Abdominal pain Condition: Stable Prescriptions: New hydrocodone-acetaminophen 5-325 mg tablet 1 tab PO Q6H PRN (Reason: pain) Qty: 14 0RF ondansetron 4 mg tablet,disintegrating 4 mg PO Q6H PRN (Reason: nausea and vomiting) Qty: 14 0RF pantoprazole [Protonix] 40 mg tablet,delayed release (DR/EC) 40 mg PO DAILY Qty: 60 0RF No Action hydrocodone-acetaminophen 7.5-325 mg tablet PO gabapentin 600 mg tablet PO albuterol sulfate [Ventolin HFA] 90 mcg/actuation HFA aerosol inhaler inhalation naloxone [Narcan] 4 mg/actuation spray,non-aerosol intranasal cyclobenzaprine 5 mg tablet PO venlafaxine 75 mg capsule,extended release 24hr 75 mg PO DAILY Qty: 7 0RF Rx Instructions: with supper venlafaxine [Effexor XR] 150 mg capsule,extended release 24hr 150 mg PO DAILY Qty: 30 3RF Rx Instructions: take 75 mg first week. take with food meloxicam 7.5 mg tablet 7.5 mg PO .Twice daily Qty: 14 0RF hydromorphone 2 mg tablet 4 mg PO Q6H PRN (Reason: pain) Qty: 10 0RF albuterol sulfate 2.5 mg /3 mL (0.083 %) solution for nebulization 2.5 mg INHALATION Q4H PRN (Reason: shortness of breath or wheezing) Qty: 90 0RF Discharge Orders: Discharge ED (Routine); Ordered 09/08/24 Ordered By: Nahid Tucker Referrals: Spenser King MD [Physician, General Surgery] - 4-7 days Discharge Diet: Advance as tolerated Discharge Activity: Resume usual activity Patient Instructions: Abdominal Pain (ED), Opioid Safety Print Language: Georgian Coding Level of Care Code ED Legal Investigator for Josafat Espinal
[2024-09-08 12:02] LABS: Basophils % 0.7 %; Eosinophils # 0.2 10^3/uL (0.0-0.8); Eosinophils % 2.7 %; Hematocrit 47.1 % (37-53); Lymphocytes # 2.3 10^3/uL (0.8-4.8); Lymphocytes % 39.1 %; Mean Corpuscular Hemoglobin 31.1 pg (27-33); Mean Corpuscular Volume 91.5 fl (82-101); Mean Platelet Volume 10.2 fL (7.4-10.4); Monocytes # 0.4 10^3/uL (0.2-0.9); Monocytes % 6.8 %; Neutrophils # 2.99 10^3/uL (1.8-7.7); Neutrophils % 50.5 %; Nucleated Red Blood Cells % 0 %; Platelet Count 222 10^3/cmm (157-399); Red Blood Count 5.15 10^6/uL (3.85-5.65); Red Cell Distribution Width 11.8 % (12.1-15.1); White Blood Count 5.91 10^3/uL (3.29-11.43)
[2024-09-08] MEDS: iohexol 350 mg/mL 500 mL Btl (per mL) IV (12:06)
[2024-09-08] MEDS: ondansetron 2 mg/ML SDV 2 mL 4 MG IVP (12:13)
[2024-09-08] MEDS: morphine 4 mg/mL SDV 1 mL IVP (12:13)
[2024-09-08 12:26] LABS: Alanine Aminotransferase 47 U/L (0-41); Albumin Level 4.8 g/dL (3.5-5.2); Alkaline Phosphatase 60 U/L (40-130); Anion Gap 15.3 (5-19); Aspartate Amino Transferase 32 U/L (0-40); Blood Urea Nitrogen 7 mg/dL (6-20); Calcium 10.1 mg/dL (8.5-10.5); Carbon Dioxide 25 mmol/L (22-29); Chloride 101 mmol/L (98-107); Creatinine Clr Calc Pharmacy 146.4834; Globulin 3.1 g/dL (1.3-4.6); Glomerular Filtration Rate 95.5 mL/min (90-130); Glucose 94 mg/dL (65-115); Lipase 41 U/L (13-60); Osmolality Calculated 282 mOsm/kg (285-295); Potassium 4.3 mmol/L (3.5-5.1); Sodium 137 mmol/L (136-145); Total Bilirubin 0.4 mg/dL (0.15-1.2); Total Protein 7.9 g/dL (6.6-8.7)
[2024-09-08 12:42] LABS: Bilirubin Urine Negative (Negative); Blood Urine Negative (Negative); Glucose Urine UA Negative (Normal); Ketones Urine Negative (Negative); Leukocyte Esterase Urine Negative (Negative); Nitrate Urine Negative (Negative); Protein Urine Negative (Negative); Urine Appearance Clear (CLEAR); Urine Color Yellow (Yellow); Urobilinogen Urine 0.2 mg/dL (Negative); pH Urine 8.5 (5-7)
[2024-09-08 12:45] LABS: Add Urine Microscopic? YES; Bacteria Urine None Seen /hpf; Hyaline Casts Urine 0-4 /lpf; RBC Urine 0-2 /hpf (0-2); Squamous Epithelial Cell Urine 0-5 /hpf (0-5); WBC Urine 0-5 /hpf (0-5)
[2024-09-08 12:54] LABS: Specific Gravity, Urine 1.053 (1.005-1.030)
[2024-09-08 13:04] VITALS: BP 117/87; PULSE 81; O2SAT 100
[2024-09-08] MEDS: HYDROmorphone 0.5 MG/0.5 ML INJ 1 MG IVP (13:14)
[2024-09-08 13:29] VITALS: BP 118/67; PULSE 77; O2SAT 97
--- NOTE | 2024-09-11 08:54 | PC.NURSE ---
General Surgery referral sent.
== END 2024-09-08 13:30 | disposition home or self-care (01) ==
PROVIDERS: Emergency Provider Emergency Medicine
DX: R10.31 Right lower quadrant pain (principal); R30.0 Dysuria; F17.290 Nicotine dependence, other tobacco product, uncomplicated; Z79.899 Other long term (current) drug therapy; Z88.2 Allergy status to sulfonamides
CPT/HCPCS: 36415; 74177; 80053; 81001; 83690; 85025; 96374; 96375; 99285; J1171; J2270; J2405

== ENCOUNTER 2024-09-09 10:26 | Outpatient (RCR) | payer MEDICAID, SELFPAY | END 2024-09-20 23:59 | disposition home or self-care (01) | LOC: SPT 10:26 | PROVIDERS: PCP Nurse Practitioner Family; Visit Provider Surgery Vascular Surgery | DX: M54.9 Dorsalgia, unspecified (principal); M25.512 Pain in left shoulder; G89.29 Other chronic pain | CPT/HCPCS: 97110; 97161 ==

== ENCOUNTER 2024-09-17 13:29 | Outpatient (CLI) | payer MEDICAID, SELFPAY ==
[2024-09-17] MEDS: albuterol 2.5 mg/3 mL Neb INHALATION (13:49)
[2024-09-17 14:07] VITALS: PULSE 68; RESP 18; O2SAT 99
== END 2024-09-17 13:30 | disposition home or self-care (01) ==
LOC: RT 13:31
PROVIDERS: PCP Nurse Practitioner Family; Visit Provider Nurse Practitioner Family
DX: R06.00 Dyspnea, unspecified (principal)
CPT/HCPCS: 94060; 94726; 94729; J7613

== ENCOUNTER 2024-10-21 06:30 | Outpatient (RCR) | payer MEDICAID, SELFPAY | END 2024-11-20 23:59 | disposition home or self-care (01) | LOC: SPT 06:30 | PROVIDERS: PCP Nurse Practitioner Family; Visit Provider Surgery Vascular Surgery | DX: M54.9 Dorsalgia, unspecified (principal); M25.512 Pain in left shoulder; G89.29 Other chronic pain | CPT/HCPCS: 97110 ==

== ENCOUNTER 2024-11-21 05:00 | Outpatient (RCR) | payer MEDICAID, SELFPAY | END 2024-12-21 23:59 | disposition home or self-care (01) | LOC: SPT 05:00 | PROVIDERS: PCP Nurse Practitioner Family; Visit Provider Surgery Vascular Surgery | DX: M54.9 Dorsalgia, unspecified (principal); M25.512 Pain in left shoulder; G89.29 Other chronic pain | CPT/HCPCS: 97110; 97140 ==

== ENCOUNTER 2024-12-22 05:00 | Outpatient (RCR) | payer MEDICAID, SELFPAY | END 2025-01-20 08:24 | disposition home or self-care (01) | LOC: SPT 05:00 | PROVIDERS: PCP Nurse Practitioner Family; Visit Provider Surgery Vascular Surgery | DX: M54.9 Dorsalgia, unspecified (principal); M25.512 Pain in left shoulder; G89.29 Other chronic pain | CPT/HCPCS: 97110 ==